=== PATIENT | female | born 1965 | race Caucasian/White ===

== ENCOUNTER 2020-05-03 05:54 | Observation (INO) | payer BC, OTHER ==
[2020-04-29 14:00] LABS: BASOPHILS # (AUTO) 0.1 (0.0-0.1); BASOPHILS % 0.9 % (0.0-1.0); EOSINOPHILS # (AUTO) 0.1 (0.0-0.4); EOSINOPHILS % 1.1 % (0.0-6.0); HEMATOCRIT 39.7 % (34.2-44.1); HEMOGLOBIN 12.3 g/dL (12.0-16.0); LYMPHOCYTES % 24.4 % (18.0-39.1); MEAN CORPUSCULAR HEMOGLOBIN 27.3 pg (28-32); MEAN CORPUSCULAR VOLUME 88.2 fL (81-99); MONOCYTES # (AUTO) 0.6 (0.2-0.8); MONOCYTES % 7.2 % (4.4-11.3); NEUTROPHILS # (AUTO) 5.3 (2.1-6.9); NEUTROPHILS % 66.2 % (38.7-80.0); PLATELET COUNT 401 x10e3/uL (140-360); RED CELL DISTRIBUTION WIDTH 16.2 % (11.7-14.4)
--- NOTE | 2020-04-29 14:29 | Diagnostic Imaging Report ---
EXAMINATION: CHEST 2 VIEWS INDICATION: Preop for left knee surgery ^[id number] ^[id number] ^PRE-OP COMPARISON: None FINDINGS: TUBES and LINES: None. LUNGS: Lungs are well inflated. Lungs are clear. There is no evidence of pneumonia or pulmonary edema. PLEURA: No pleural effusion or pneumothorax. HEART AND MEDIASTINUM: The cardiomediastinal silhouette is unremarkable. BONES AND SOFT TISSUES: No acute osseous lesion. Soft tissues are unremarkable. UPPER ABDOMEN: No free air under the diaphragm. Partially imaged laparoscopic gastric banding device. IMPRESSION: No acute thoracic abnormality. Signed by: Dr. Barney Lazar M.D. on 04/29/2020 2:26 PM
[~2020-05-03] VITALS: Ht 175.3 cm; Wt 117.9 kg
[~2020-05-03 05:54] MED LIST: DALIRESP500 MCG; LEVOXYL200 MCG PO; METOPROLOL; TRILOGY
[2020-05-03] MEDS ORDERED: VANCOMYCIN HCL 500 MG ONE (06:38)
[2020-05-03] MEDS ORDERED: TRANEXAMIC ACID 1,000 MG/10 ML ML ONE (06:38)
[2020-05-03] MEDS ORDERED: CELECOXIB 200 MG CAP ONE (07:12)
[2020-05-03] MEDS ORDERED: DEXAMETHASONE SOD PHOS 10 MG/1 ML VIAL ONE (07:12)
[2020-05-03] MEDS ORDERED: GABAPENTIN 300 MG CAP ONE (07:13)
[2020-05-03] MEDS ORDERED: CEFAZOLIN SOD 1 GM/NS 50ML 100 ML IV ONE (07:13)
[2020-05-03] MEDS ORDERED: METOPROLOL TARTRATE INJ 1 MG/ML VIAL ONE (07:56)
[2020-05-03] MEDS ORDERED: ROPIVACAINE 246.25 MG, EPINEPHRINE HCL 1:1000 1ML 0.5 MG, CLONIDINE HCL 0.08 MG, KETORO... INJ ONE ×5 (08:00)
[2020-05-03] MEDS ORDERED: DOCUSATE SODIUM 100 MG CAP PO PRN (09:45)
[2020-05-03] MEDS ORDERED: ACETAMINOPHEN 650 MG SUPP PR PRN (09:45)
[2020-05-03] MEDS ORDERED: ONDANSETRON HCL INJ 2MG/ML 2ML 2 MG/ML VIAL IV PRN (09:45)
[2020-05-03] MEDS ORDERED: DIPHENHYDRAMINE HCL INJ 50 MG/ML VIAL IV PRN (09:45)
[2020-05-03] MEDS ORDERED: HYDROCODONE/APAP 5MG-325MG TAB PO PRN (09:45)
[2020-05-03] MEDS ORDERED: MEPERIDINE HCL INJ 25 MG/ML VIAL ONE (10:08)
[2020-05-03] MEDS ORDERED: FENTANYL CITRATE/PF 100MCG/2 ML INJ ONE ×2 (10:10→13:37)
--- OUTSIDE RECORDS SUMMARY | 2020-05-03 10:36 | XMS REPORT | Continuity of Care Document ---
Author Author [facility] t Organization [facility] Address [address] [place] [address] Phone Unavailable Care Team Providers Care Community Relations Specialist Name Role Phone Femi BANKS, Colin Justice PCP [phone] PERRY SHUKLA Attphys Unavailable Joselo RN, Rodger Attphys Unavailable Femi BANKS, Colin Justice Attphys [phone] Payers Payer Name Policy Type Policy Number Effective Date Expiration Date S genesis BLUE CROSS/BLUE SHIELDBCBS ADV HMO EXCHA [id number] [facility] [id number], [place] [address] xxxxxxxxxxxx [facility] BCBS EXCHANGEBLUE ADVANTAGE HMO EXCHxxxxxxxxxxxx2018-Pre sentExchange xxxxxxxxxxxx 2018 00:00:00 Edilson Carney Problems Condition Name Condition Details Condition Category Status Onset Date Resolution Date Last Treatment Date Treating Clinician Comments Source COPD (chronic obstructive pulmonary disease) COPD (chr onic obstructive pulmonary disease) Disease Active 2019-03-10 00:00:00 Tadeo Carney Allergies, Adverse Reactions, Alerts Allergy Name Allergy Type Status Severity Reaction(s) Onset Date Inacti ve Date Treating Clinician Comments Source No Known Allergies DA Active U 2018-12-24 00:00:00 [facility] No Known Drug Allergies DA Active U 2014-11-11 00:00:00 [facility] Social History Social Habit Start Date Stop Date Quantity Comments Source Sex Assigned At [facility] History SDOH Alcohol Frequency 2019-03-26 00:00:00 2019-03-26 00:00:0 0 2 [facility] History SDOH Alcohol Std Drinks 2019-03-26 00:00:00 2019-03-26 00:00: 00 1 [facility] History SDOH Alcohol Binge 2019-03-26 00:00:00 2019-03-26 00:00:00 1 [facility] Smoking Status Start Date Stop Date Source Former smoker 2019-03-26 00:00:00 2019-03-26 00:00:00 [facility] Medications Ordered Medication Name Filled Medication Name Start Date Stop Da te Current Medication? Ordering Clinician Indication Dosage Frequency Signature (SIG) Comments Components Source naproxen (NAPROSYN) 500 MG tablet 2019-03-26 10:14:30 Yes 500mg Take 500 mg by mouth 2 (two) times daily with breakfast and dinner. [facility] metoprolol (TOPROL-XL) 50 MG 24 hr tablet 2019-03-26 10:14:30 Yes 50mg Q.5D Take 50 mg by mouth 2 (two) times daily. [facility] roflumilast (DALIRESP) 500 mcg Tab tablet 2019-03-26 10:14:30 Yes 500ug QD Take 500 mcg by mouth daily. [facility] fluticasone furoate-vilanterol 100-25 mcg/dose DsDv 03-26 10:14:30 Yes 1{puff} QD Inhale 1 puff by mouth via inhaler daily . [facility] levothyroxine (SYNTHROID, LEVOTHROID) 175 MCG tablet 2 10:14:29 Yes 175ug Take 175 mcg by mouth Every morning on a n empty stomach. [facility] diclofenac submicronized (ZORVOLEX) 35 mg Cap 2019-03-26 10:14:2 9 Yes 35mg QD Take 35 mg by mouth daily. [facility] mirabegron (MYRBETRIQ) 50 mg Tb24 ER tablet 2019-03-26 10:14:29 Yes 50mg QD Take 50 mg by mouth daily. [facility] furosemide (LASIX) 20 MG tablet 2019-03-26 10:14:29 Yes 20mg QD Take 20 mg by mouth daily. [facility] metoprolol succinate XL (TOPROL-XL) 50 mg 24 hr tablet 2019-03-10 08:22:17 Yes 50mg QD Take 50 mg by mouth daily. Edilson Carney aspirin (ECOTRIN) 81 MG enteric coated tablet 2019-03-10 08:22:1 7 Yes 81mg QD Take 81 mg by mouth daily. Selvin Carney naproxen (NAPROSYN) 250 MG tablet 2019-03-10 08:22:17 Yes 250mg Q.5D Take 250 mg by mouth 2 (two) times a day with meals. Edilson Carney levothyroxine (SYNTHROID, LEVOXYL) 75 mcg tablet 2019-03-10 08:22:17 Yes 75ug QD Take 75 mcg by mouth daily. Edilson Carney dirsuvubhng-frjyjkmms-psnxxpeg (TRELEGY ELLIPTA) 100-62.5-25 mcg blister with device 2019-03-10 08:22:17 Yes QD Inhale anna y. Edilson Carney roflumilast (DALIRESP) 500 mcg tablet 2019-03-10 08:22:17 Y es 500ug QD Take 500 mcg by mouth daily. Edilson emdina fluticasone furoate-vilanterol (BREO ELL IPTA) 100-25 mcg/dose blister with device powder for inhalation 2019-03-10 08:22:17 Yes QD Inhale 1 inhalations daily. Edilson Carney Procedures This patient has no known procedures. Plan of Care Planned Activity Planned Date Details Comments Source Future Scheduled Test 2020-05-20 00:00:00 INFLUENZA VACCINE [code = INFLUENZA VACCINE] Edilson Carney Future Scheduled Test 2020-04-20 00:00:00 INFLUENZA VACCINE (#1) [code = INFLUENZA VACCINE (#1)] [facility] 2016-09-15 00:00:00 BREAST CANCER SCRE ENING [code = BREAST CANCER SCREENING] [facility] Future Scheduled Test 2014 00:00:00 COLONOSCOPY SCREEN ING [code = COLONOSCOPY SCREENING] [facility] Scheduled Test 2014 00:00:00 SHINGLES VACCINES (#1) [code = SHINGLES VACCINES (#1)] [facility] Future Scheduled Test 2009 00:00:00 Lipid panel (proce dure) [code = 63431977] [facility] Future Scheduled Test 1985 00:00:00 Screening for subha gnant neoplasm of cervix (procedure) [code = 115112825] [facility] t Future Scheduled Test 1985 00:00:00 Screening for subha gnant neoplasm of cervix (procedure) [code = 434888224] [facility] Future Scheduled Test 1970 00:00:00 PNEUMOCOCCAL VACCI NE 2-64 YEARS AT RISK (1 of 1 - PPSV23) [code = PNEUMOCOCCAL VACCINE 2-64 YEARS AT RISK (1 of 1 - PPSV23)] [facility] Future Scheduled Test 1964 00:00:00 Screening for subha gnant neoplasm of breast (procedure) [code = 670896320] [facility] Future Scheduled Test 1964 00:00:00 Screening for subha gnant neoplasm of colon (procedure) [code = 334555206] [facility] Results Test Description Test Time Test Comments Results Result Comments Source CHEST 2 VIEWS 2020-04-29 14:20:00 [place] [address] Patient Name: AMANDA PICKARD MR #: [id number] : 1965 Age/Sex: 54/F Req #: [id number] Adm Physician: Ordered by: PERRY SHUKLA MD Report #: [id number] Location: OR Room/Bed: Procedure: [id number] DX/CHEST 2 VIEWS Exam Date: 04/29/20 Exam Time: 140 REPORT STATUS: Signed EXAMINATION: CHEST 2 VIEWS INDICATION: Preop for left knee surgery [id number] PRE-OP COMPARISON: None FINDINGS: TUBES and LINES: None. LUNGS: Lungs are well inflated. Lungs are clear. There is no evidence of pneumonia or pulmonary edema. PLEURA: No pleural effusion or pneumothorax. HEART AND MEDIASTINUM: The cardiomediastinal silhouette is unremarkable. BONES AND SOFT TISSUES: No acute osseous lesion. Soft tissues are unremarkable. UPPER ABDOMEN: No free air under the diaphragm. Partially imaged laparoscopic gastric banding device. IMPRESSION: No acute thoracic abnormality. Signed by: Dr. Claire Lazar M.D. on 04/29/2020 2:26 PM Dictated By: CLAIRE LAZAR MD, MD 25 Transcribed By: SERJIO on 04/29/201425 COPY TO: PERRY SHUKLA MD RAD, CHEST, 2 VIEWS 2019-03-26 12:00:00 [facility]:Amanda MichaelKalpesh# [id number] # [id number] Exam:->COPD FINAL REPORT RAD, CHEST, 2 VIEWS CLINICAL INDICATION: COPD COMPARISON: None TECHNIQUE: Frontal and lateral views of the chest FINDINGS: Lungs are hyperinflated. No focal consolidation. No pleural effusion or pneumothorax. Cardiomediastinal silhouette, biju, and pulmonary vasculature are normal. Degenerative changes of the thoracic spine with a mid thoracic compression deformity. IMPRESSION:1.Hyperinflated lungs. No acute cardiopulmonary abnormality. 2.Age-indeterminate mid thoracic compression fracture. Signed: Tom Inman Verified Date/Time: 03/26/2019 12:00:42 Reading Location: [facility] Radiology Reading Room NUCLEAR ANTIBODIES TITER 2019-01-16 10:17:00 Test Item MICHELLE SCREEN (test code = ANASCR) AB DNA DOUBLE [id number] 10:17:00* Test Item Value Reference Range Interpretation Comments AB DNA DOUBLE STRAND (test code = DNADSAB) 1 IU/mL 0-9 Negative <5 Equivocal 5 - 9 Positive >9 ANTINUCLEAR ANTIBODIES [id number] 10:17:00* Test Item Value Reference Range Interpretation Comments MICHELLE SCREEN (test code = ANASCR) Negative Negative Performed At: [facility] [id number] [place], [place] [id number] Shailesh Frederick MD Ph:[phone] AB DNA DOUBLE [id number] 10:17:00* Test Item Value Reference Range Interpretation Comments AB DNA DOUBLE STRAND (test code = DNADSAB) 1 IU/mL 0-9 Negative <5 Equivocal 5 - 9 Positive >9 RHEUMATOID FACTOR [id number] 17:54:00* Test Item Value Reference Range Interpretation Comments RHEUMATOID FACTOR SCREEN (test code = RA) NEGATIVE NEGATIVE PROCALCITONIN (PCT)2019-01-15 08:19:00* Test Item Value Reference Range Interpretation Comments PROCALCITONIN (PCT) (test code = PROCAL) 0.05 ng/ml Concentration Interpretation (ng/mL) <0.51 Sepsis is not likely. Local bacterial infection is possible. (LOW RISK for progression to Sepsis) 0.51 - 2.00 Sepsis is possible, but other conditions are known to elevate PCT as well. (MODERATE RISK for progression to Sepsis) > 2.00 Sepsis is likely, unless other causes are known. (HIGH RISK for progression to Severe Sepsis or Septic Shock) 10.00 High likelihood of Severe Sepsis or Septic or higher Shock. *Increased PCT levels may not always be related to systemic bacterial infection.*Low PCT levels do not automatically exclude the presence of bacterial infection.*All results should be interpreted taking into account the patients history. BASIC METABOLIC [id number] 08:05:00* Test Item Value Reference Range Interpretation Comments SODIUM (test code = NA) 142 mmol/L 136-145 N POTASSIUM (test code = K) 3.7 mmol/L 3.5-5.1 N CHLORIDE (test code = CL) 108.0 mmol/L 98-107 H CARBON DIOXIDE (test code = CO2) 30.0 mmol/L 21-32 N ANION GAP (test code = GAP) 7.7 10-20 L GLUCOSE (test code = GLU) 81 mg/dL 74-106 N BLOOD UREA NITROGEN (test code = BUN) 28 mg/dL 7-18 H GLOMERULAR FILTRATION RATE (test code = GFR) > 60 mL/min >=60 Estimated GFR by using Modified MDRD formula.Chronic kidney disease is defined as either kidney damageor GFR <60 mL/min/1.73 m2 for >3 months. CREATININE (test code = CREAT) 0.80 mg/dL 0.55-1.02 N Note change in reference range due to change in reagent. BUN/CREATININE RATIO (test code = BUN/CREA) 35.0 10-20 H CALCIUM (test code = CA) 8.7 mg/dL 8.5-10.1 N [id number] 08:05:00* Test Item Value Reference Range Interpretation Comments MAGNESIUM (test code = MAG) 2.2 mg/dL 1.8-2.4 N C REACTIVE [id number] 08:04:00* Test Item Value Reference Range Interpretation Comments C REACTIVE PROTEIN (test code = CRP) 6.86 mg/dL 0-0.3 H BASIC METABOLIC [id number] 08:00:00* Test Item Value Reference Range Interpretation Comments SODIUM (test code = NA) 142 mmol/L 136-145 N POTASSIUM (test code = K) 3.7 mmol/L 3.5-5.1 N CHLORIDE (test code = CL) 108.0 mmol/L 98-107 H CARBON DIOXIDE (test code = CO2) mmol/L 21-32 ANION GAP (test code = GAP) 10-20 GLUCOSE (test code = GLU) mg/dL 74-106 BLOOD UREA NITROGEN (test code = BUN) mg/dL 7-18 GLOMERULAR FILTRATION RATE (test code = GFR) mL/min >=60 CREATININE (test code = CREAT) mg/dL 0.55-1.02 BUN/CREATININE RATIO (test code = BUN/CREA) 10-20 CALCIUM (test code = CA) mg/dL 8.5-10.1 [id number] 08:00:00* Test Item Value Reference Range Interpretation Comments MAGNESIUM (test code = MAG) mg/dL 1.8-2.4 PROTHROMBIN [id number] 08:00:00* Test Item Value Reference Range Interpretation Comments PROTHROMBIN TIME PATIENT (test code = PTP) 12.3 seconds 9.0-14.0 N INTERNATIONAL NORMAL RATIO (test code = INR) 1.0 0.8-1.2 N The therapeutic range for oral anticoagulant therapy formost indications is an international normalized ratio (INR)of between 2.0 and 3.0. The recommended therapeutic INRrange for various clinical situations is listed below: Clinical Situation INR range Pulmonary e mbolism treatment (2.0-3.0)Venous thrombosis treatmentVenous thrombosis prophylaxis (high risk surgery)Prevention of systemic embolism from: Acute myocardial infarction Valvular heart disease Atrial fibrillation Mechanical prosthetic heart valves (2.5-3.5) IS PATIENT ON ANTICOAGULANTS? NTHROMBOPLASTIN TIME [id number] 08:00:00* Test Item Value Reference Range Interpretation Comments THROMBOPLASTIN TIME PARTIAL (test code = PTT) 25.5 seconds 25.0-36. 5 N IS PATIENT ON ANTICOAGULANTS? NCBC W/AUTO [id number] 07:45:00* Test Item Value Reference Range Interpretation Comments WHITE BLOOD CELL (test code = WBC) 10.9 K/mm3 4.5-12.5 N RED BLOOD CELL (test code = RBC) 3.31 mill/mm3 3.7-5.2 L HEMOGLOBIN (test code = HGB) 9.4 gram/dL 11.5-15.5 L HEMATOCRIT (test code = HCT) 30.4 % 36.0-46.0 L MEAN CELL VOLUME (test code = MCV) 91.8 fL 80-98 N MEAN CELL HGB (test code = MCH) 28.4 picogram 27.0-33.0 N MEAN CELL HGB CONCETRATION (test code = MCHC) 30.9 gram/dL 33.0-36. 0 L RED CELL DISTRIBUTION WIDTH (test code = RDW) 15.5 % 11.6-16. 2 N RED CELL DISTRIBUTION WIDTH SD (test code = RDW-SD) 52.0 fL 37 .0-51.0 H PLATELET COUNT (test code = PLT) 508 K/mm3 150-450 H MEAN PLATELET VOLUME (test code = MPV) 9.9 fL 6.7-11.0 N NEUTROPHIL % (test code = NT%) 76.6 % 39.0-69.0 H IMMATURE GRANULOCYTE % (test code = IG%) 0.7 % 0.0-5.0 N LYMPHOCYTE % (test code = LY%) 18.5 % 25.0-55.0 L MONOCYTE % (test code = MO%) 2.9 % 0.0-10.0 N EOSINOPHIL % (test code = EO%) 1.1 % 0.0-5.0 N BASOPHIL % (test code = BA%) 0.2 % 0.0-1.0 N NUCLEATED RBC % (test code = NRBC%) 0.0 % 0-0 N NEUTROPHIL # (test code = NT#) 8.37 K/mm3 1.8-7.7 H IMMATURE GRANULOCYTE # (test code = IG#) 0.08 x10 3/uL 0-0.03 H LYMPHOCYTE # (test code = LY#) 2.02 K/mm3 1.0-5.0 N MONOCYTE # (test code = MO#) 0.32 K/mm3 0-0.8 N EOSINOPHIL # (test code = EO#) 0.12 K/mm3 0.0-0.5 N BASOPHIL # (test code = BA#) 0.02 K/mm3 0.0-0.2 N NUCLEATED RBC # (test code = NRBC#) 0.00 K/mm3 0.0-0.1 N COMPREHENSIVE METABOLIC [id number] 07:31:00* Test Item Value Reference Range Interpretation Comments SODIUM (test code = NA) 140 mmol/L 136-145 N POTASSIUM (test code = K) 4.3 mmol/L 3.5-5.1 N CHLORIDE (test code = CL) 107.0 mmol/L 98-107 N CARBON DIOXIDE (test code = CO2) 25.0 mmol/L 21-32 N ANION GAP (test code = GAP) 12.3 10-20 N GLUCOSE (test code = GLU) 141 mg/dL 74-106 H BLOOD UREA NITROGEN (test code = BUN) 22 mg/dL 7-18 H GLOMERULAR FILTRATION RATE (test code = GFR) > 60 mL/min >=60 Estimated GFR by using Modified MDRD formula.Chronic kidney disease is defined as either kidney damageor GFR <60 mL/min/1.73 m2 for >3 months. CREATININE (test code = CREAT) 0.70 mg/dL 0.55-1.02 N Note change in reference range due to change in reagent. BUN/CREATININE RATIO (test code = BUN/CREA) 31.4 10-20 H TOTAL PROTEIN (test code = PROT) 6.5 gram/dL 6.4-8.2 N ALBUMIN (test code = ALB) 2.6 g/dL 3.4-5.0 L GLOBULIN (test code = GLOB) 3.9 gram/dL 2.7-4.2 N ALBUMIN/GLOBULIN RATIO (test code = A/G) 0.7 0.75-1.50 L CALCIUM (test code = CA) 8.2 mg/dL 8.5-10.1 L BILIRUBIN TOTAL (test code = BILT) 0.30 mg/dL 0.0-1.0 N SGOT/AST (test code = AST) 15 IUnit/L 15-37 N SGPT/ALT (test code = ALT) 25 IUnit/L 12-78 N ALKALINE PHOSPHATASE TOTAL (test code = ALKP) 95 IUnit/L 45-117 N Note change in reference range due to change in reagent. [id number] 07:31:00* Test Item Value Reference Range Interpretation Comments MAGNESIUM (test code = MAG) 2.1 mg/dL 1.8-2.4 N THYROID STIMULATING [id number] 07:31:00* Test Item Value Reference Range Interpretation Comments THYROID STIMULATING HORMONE (test code = TSH) 0.385 uIU/mL 0.36-3.7 4 N TSH REFERENCE RANGES: EUTHYROID: 0.35 - 4.3 mIU/mL HYPO : > 5.5 mIU/mL HYPER : < 0.35 mIU/mL COMPREHENSIVE METABOLIC [id number] 07:01:00* Test Item Value Reference Range Interpretation Comments SODIUM (test code = NA) 140 mmol/L 136-145 N POTASSIUM (test code = K) 4.3 mmol/L 3.5-5.1 N CHLORIDE (test code = CL) 107.0 mmol/L 98-107 N CARBON DIOXIDE (test code = CO2) mmol/L 21-32 ANION GAP (test code = GAP) 10-20 GLUCOSE (test code = GLU) mg/dL 74-106 BLOOD UREA NITROGEN (test code = BUN) mg/dL 7-18 GLOMERULAR FILTRATION RATE (test code = GFR) mL/min >=60 CREATININE (test code = CREAT) mg/dL 0.55-1.02 BUN/CREATININE RATIO (test code = BUN/CREA) 10-20 TOTAL PROTEIN (test code = PROT) gram/dL 6.4-8.2 ALBUMIN (test code = ALB) g/dL 3.4-5.0 GLOBULIN (test code = GLOB) gram/dL 2.7-4.2 ALBUMIN/GLOBULIN RATIO (test code = A/G) 0.75-1.50 CALCIUM (test code = CA) mg/dL 8.5-10.1 BILIRUBIN TOTAL (test code = BILT) mg/dL 0.0-1.0 SGOT/AST (test code = AST) IUnit/L 15-37 SGPT/ALT (test code = ALT) IUnit/L 12-78 ALKALINE PHOSPHATASE TOTAL (test code = ALKP) IUnit/L 45-117 [id number] 07:01:00* Test Item Value Reference Range Interpretation Comments MAGNESIUM (test code = MAG) mg/dL 1.8-2.4 THYROID STIMULATING [id number] 07:01:00* Test Item Value Reference Range Interpretation Comments THYROID STIMULATING HORMONE (test code = TSH) uIU/mL 0.36-3.7 4 CBC W/AUTO [id number] 06:41:00* Test Item Value Reference Range Interpretation Comments WHITE BLOOD CELL (test code = WBC) 13.0 K/mm3 4.5-12.5 H RED BLOOD CELL (test code = RBC) 3.43 mill/mm3 3.7-5.2 L HEMOGLOBIN (test code = HGB) 9.7 gram/dL 11.5-15.5 L HEMATOCRIT (test code = HCT) 30.7 % 36.0-46.0 L MEAN CELL VOLUME (test code = MCV) 89.5 fL 80-98 N MEAN CELL HGB (test code = MCH) 28.3 picogram 27.0-33.0 N MEAN CELL HGB CONCETRATION (test code = MCHC) 31.6 gram/dL 33.0-36. 0 L RED CELL DISTRIBUTION WIDTH (test code = RDW) 15.8 % 11.6-16. 2 N RED CELL DISTRIBUTION WIDTH SD (test code = RDW-SD) 51.1 fL 37 .0-51.0 H PLATELET COUNT (test code = PLT) 476 K/mm3 150-450 H MEAN PLATELET VOLUME (test code = MPV) 10.3 fL 6.7-11.0 N NEUTROPHIL % (test code = NT%) 93.0 % 39.0-69.0 H IMMATURE GRANULOCYTE % (test code = IG%) 0.7 % 0.0-5.0 N LYMPHOCYTE % (test code = LY%) 4.9 % 25.0-55.0 L MONOCYTE % (test code = MO%) 1.3 % 0.0-10.0 N EOSINOPHIL % (test code = EO%) 0.0 % 0.0-5.0 N BASOPHIL % (test code = BA%) 0.1 % 0.0-1.0 N NUCLEATED RBC % (test code = NRBC%) 0.0 % 0-0 N NEUTROPHIL # (test code = NT#) 12.06 K/mm3 1.8-7.7 H IMMATURE GRANULOCYTE # (test code = IG#) 0.09 x10 3/uL 0-0.03 H LYMPHOCYTE # (test code = LY#) 0.64 K/mm3 1.0-5.0 L MONOCYTE # (test code = MO#) 0.17 K/mm3 0-0.8 N EOSINOPHIL # (test code = EO#) 0.00 K/mm3 0.0-0.5 N BASOPHIL # (test code = BA#) 0.01 K/mm3 0.0-0.2 N NUCLEATED RBC # (test code = NRBC#) 0.00 K/mm3 0.0-0.1 N CBC W/AUTO [id number] 07:27:00* Test Item Value Reference Range Interpretation Comments WHITE BLOOD CELL (test code = WBC) 9.5 K/mm3 4.5-12.5 N RED BLOOD CELL (test code = RBC) 3.25 mill/mm3 3.7-5.2 L HEMOGLOBIN (test code = HGB) 9.2 gram/dL 11.5-15.5 L HEMATOCRIT (test code = HCT) 29.7 % 36.0-46.0 L MEAN CELL VOLUME (test code = MCV) 91.4 fL 80-98 N MEAN CELL HGB (test code = MCH) 28.3 picogram 27.0-33.0 N MEAN CELL HGB CONCETRATION (test code = MCHC) 31.0 gram/dL 33.0-36. 0 L RED CELL DISTRIBUTION WIDTH (test code = RDW) 14.4 % 11.6-16. 2 N RED CELL DISTRIBUTION WIDTH SD (test code = RDW-SD) 47.9 fL 37 .0-51.0 N PLATELET COUNT (test code = PLT) 319 K/mm3 150-450 RESULT VERIFIED BY REPEAT ANALYSIS MEAN PLATELET VOLUME (test code = MPV) 10.2 fL 6.7-11.0 N NEUTROPHIL % (test code = NT%) 72.1 % 39.0-69.0 H IMMATURE GRANULOCYTE % (test code = IG%) 0.6 % 0.0-5.0 N LYMPHOCYTE % (test code = LY%) 18.4 % 25.0-55.0 L MONOCYTE % (test code = MO%) 7.6 % 0.0-10.0 N EOSINOPHIL % (test code = EO%) 0.7 % 0.0-5.0 N BASOPHIL % (test code = BA%) 0.6 % 0.0-1.0 N NUCLEATED RBC % (test code = NRBC%) 0.0 % 0-0 N NEUTROPHIL # (test code = NT#) 6.83 K/mm3 1.8-7.7 N IMMATURE GRANULOCYTE # (test code = IG#) 0.06 x10 3/uL 0-0.03 H LYMPHOCYTE # (test code = LY#) 1.75 K/mm3 1.0-5.0 N MONOCYTE # (test code = MO#) 0.72 K/mm3 0-0.8 N EOSINOPHIL # (test code = EO#) 0.07 K/mm3 0.0-0.5 N BASOPHIL # (test code = BA#) 0.06 K/mm3 0.0-0.2 N NUCLEATED RBC # (test code = NRBC#) 0.00 K/mm3 0.0-0.1 N MANUAL DIFF REQUIRED (test code = MDIFF) NO CBC W/AUTO [id number] 11:37:00* Test Item Value Reference Range Interpretation Comments WHITE BLOOD CELL (test code = WBC) 13.7 K/mm3 4.5-12.5 H RED BLOOD CELL (test code = RBC) 3.54 mill/mm3 3.7-5.2 L HEMOGLOBIN (test code = HGB) 10.1 gram/dL 11.5-15.5 L RESULT VERIFIED BY REPEAT ANALYSIS HEMATOCRIT (test code = HCT) 32.6 % 36.0-46.0 L MEAN CELL VOLUME (test code = MCV) 92.1 fL 80-98 N MEAN CELL HGB (test code = MCH) 28.5 picogram 27.0-33.0 N MEAN CELL HGB CONCETRATION (test code = MCHC) 31.0 gram/dL 33.0-36. 0 L RED CELL DISTRIBUTION WIDTH (test code = RDW) 14.2 % 11.6-16. 2 N RED CELL DISTRIBUTION WIDTH SD (test code = RDW-SD) 48.2 fL 37 .0-51.0 N PLATELET COUNT (test code = PLT) 376 K/mm3 150-450 RESULT VERIFIED BY REPEAT ANALYSIS MEAN PLATELET VOLUME (test code = MPV) 9.9 fL 6.7-11.0 N NEUTROPHIL % (test code = NT%) 83.0 % 39.0-69.0 H IMMATURE GRANULOCYTE % (test code = IG%) 0.5 % 0.0-5.0 N LYMPHOCYTE % (test code = LY%) 9.4 % 25.0-55.0 L MONOCYTE % (test code = MO%) 6.9 % 0.0-10.0 N EOSINOPHIL % (test code = EO%) 0.0 % 0.0-5.0 N BASOPHIL % (test code = BA%) 0.2 % 0.0-1.0 N NUCLEATED RBC % (test code = NRBC%) 0.0 % 0-0 N NEUTROPHIL # (test code = NT#) 11.35 K/mm3 1.8-7.7 H IMMATURE GRANULOCYTE # (test code = IG#) 0.07 x10 3/uL 0-0.03 H LYMPHOCYTE # (test code = LY#) 1.29 K/mm3 1.0-5.0 N MONOCYTE # (test code = MO#) 0.94 K/mm3 0-0.8 H EOSINOPHIL # (test code = EO#) 0.00 K/mm3 0.0-0.5 N BASOPHIL # (test code = BA#) 0.03 K/mm3 0.0-0.2 N NUCLEATED RBC # (test code = NRBC#) 0.00 K/mm3 0.0-0.1 N MANUAL DIFF REQUIRED (test code = MDIFF) NO BASIC METABOLIC [id number] 05:21:00* Test Item Value Reference Range Interpretation Comments SODIUM (test code = NA) 139 mmol/L 136-145 N POTASSIUM (test code = K) 4.6 mmol/L 3.5-5.1 N CHLORIDE (test code = CL) 105.0 mmol/L 98-107 N CARBON DIOXIDE (test code = CO2) 21.0 mmol/L 21-32 N ANION GAP (test code = GAP) 17.6 10-20 N GLUCOSE (test code = GLU) 115 mg/dL 74-106 H BLOOD UREA NITROGEN (test code = BUN) 20 mg/dL 7-18 H GLOMERULAR FILTRATION RATE (test code = GFR) > 60 mL/min >=60 Estimated GFR by using Modified MDRD formula.Chronic kidney disease is defined as either kidney damageor GFR <60 mL/min/1.73 m2 for >3 months. CREATININE (test code = CREAT) 0.70 mg/dL 0.55-1.02 N Note change in reference range due to change in reagent. BUN/CREATININE RATIO (test code = BUN/CREA) 28.6 10-20 H CALCIUM (test code = CA) 7.2 mg/dL 8.5-10.1 L THYROID STIMULATING [id number] 05:21:00* Test Item Value Reference Range Interpretation Comments THYROID STIMULATING HORMONE (test code = TSH) 0.594 uIU/mL 0.36-3.7 4 N TSH REFERENCE RANGES: EUTHYROID: 0.35 - 4.3 mIU/mL HYPO : > 5.5 mIU/mL HYPER : < 0.35 mIU/mL BASIC METABOLIC [id number] 05:01:00* Test Item Value Reference Range Interpretation Comments SODIUM (test code = NA) 139 mmol/L 136-145 N POTASSIUM (test code = K) 4.6 mmol/L 3.5-5.1 N CHLORIDE (test code = CL) 105.0 mmol/L 98-107 N CARBON DIOXIDE (test code = CO2) mmol/L 21-32 ANION GAP (test code = GAP) 10-20 GLUCOSE (test code = GLU) mg/dL 74-106 BLOOD UREA NITROGEN (test code = BUN) mg/dL 7-18 GLOMERULAR FILTRATION RATE (test code = GFR) mL/min >=60 CREATININE (test code = CREAT) mg/dL 0.55-1.02 BUN/CREATININE RATIO (test code = BUN/CREA) 10-20 CALCIUM (test code = CA) mg/dL 8.5-10.1 THYROID STIMULATING [id number] 05:01:00* Test Item Value Reference Range Interpretation Comments THYROID STIMULATING HORMONE (test code = TSH) uIU/mL 0.36-3.7 4 CBC W/AUTO [id number] 04:53:00* Test Item Value Reference Range Interpretation Comments WHITE BLOOD CELL (test code = WBC) 7.1 K/mm3 4.5-12.5 N RED BLOOD CELL (test code = RBC) 2.05 mill/mm3 3.7-5.2 L HEMOGLOBIN (test code = HGB) 5.9 gram/dL 11.5-15.5 L HEMATOCRIT (test code = HCT) 19.3 % 36.0-46.0 LL Critical results verified and read back by Nurse?YRELEASED PER [id number] LET HIM KNOW THEPREVIOUS RESULTS MEAN CELL VOLUME (test code = MCV) 94.1 fL 80-98 N MEAN CELL HGB (test code = MCH) 28.8 picogram 27.0-33.0 N MEAN CELL HGB CONCETRATION (test code = MCHC) 30.6 gram/dL 33.0-36. 0 L RED CELL DISTRIBUTION WIDTH (test code = RDW) 14.1 % 11.6-16. 2 N RED CELL DISTRIBUTION WIDTH SD (test code = RDW-SD) 48.2 fL 37 .0-51.0 N PLATELET COUNT (test code = PLT) 197 K/mm3 150-450 N MEAN PLATELET VOLUME (test code = MPV) 9.8 fL 6.7-11.0 N NEUTROPHIL % (test code = NT%) 87.3 % 39.0-69.0 H IMMATURE GRANULOCYTE % (test code = IG%) 0.6 % 0.0-5.0 N LYMPHOCYTE % (test code = LY%) 7.6 % 25.0-55.0 L MONOCYTE % (test code = MO%) 4.4 % 0.0-10.0 N EOSINOPHIL % (test code = EO%) 0.0 % 0.0-5.0 N BASOPHIL % (test code = BA%) 0.1 % 0.0-1.0 N NUCLEATED RBC % (test code = NRBC%) 0.0 % 0-0 N NEUTROPHIL # (test code = NT#) 6.17 K/mm3 1.8-7.7 N IMMATURE GRANULOCYTE # (test code = IG#) 0.04 x10 3/uL 0-0.03 H LYMPHOCYTE # (test code = LY#) 0.54 K/mm3 1.0-5.0 L MONOCYTE # (test code = MO#) 0.31 K/mm3 0-0.8 N EOSINOPHIL # (test code = EO#) 0.00 K/mm3 0.0-0.5 N BASOPHIL # (test code = BA#) 0.01 K/mm3 0.0-0.2 N NUCLEATED RBC # (test code = NRBC#) 0.00 K/mm3 0.0-0.1 N MANUAL DIFF REQUIRED (test code = MDIFF) NO URINALYSIS W/O [id number] 11:10:00* Test Item Value Reference Range Interpretation Comments UA COLOR (test code = COLU) Light-Yellow YELLOW UA APPEARANCE (test code = APPU) CLEAR CLEAR UA GLUCOSE DIPSTICK (test code = DGLUU) NEGATIVE mg/dL NEGATIVE UA BILIRUBIN DIPSTICK (test code = BILU) NEGATIVE mg/dL NEGATIVE UA KETONE DIPSTICK (test code = KETU) NEGATIVE mg/dL NEGATIVE UA SPECIFIC GRAVITY (test code = SGU) 1.018 1.001-1.035 UA BLOOD DIPSTICK (test code = OLGA) Negative mg/dL NEGATIVE UA PH DIPSTICK (test code = RIKA) 6.5 5.0-8.0 UA PROTEIN DIPSTICK (test code = PROU) NEGATIVE mg/dL NEGATIVE UA UROBILINIOGEN DIPSTICK (test code = URO) Normal mg/dL NEGATIVE UA NITRITE DIPSTICK (test code = TERRI) NEGATIVE NEGATIVE UA LEUKOCYTE ESTERASE W REFLEX (test code = LEUUR) NEGATIVE Gui/uL NEGATIVE - XR CHEST 2 [id number] 11:08:00 FAX: Vinh Ceja [phone] [place]: O St: PRE FAX: Chang Mensah MD [phone] Name: AMANDA PICK[facility] : 1965 Age/S: 53/F [address] Unit #: [id number] Loc: [place] [address] Phys: Chang He MD Acct: [id number] Dis Date: Status: PRE IN PHONE #: [phone] Exam Date: 12/24/2018 1516 FAX #: [phone] Reason: PRE OP EXAMS: CPT CODE: [id number] XR CHEST 2 V 01580 HISTORY: Preop. COMPARISON: November 11, 2014. AP and lateral view of the chest: No acute infiltrates, effusion or congestion. Cardiac and the mediastinal silhouette are normal. IMPRESSION: No acute infiltrates, effusion or congestion. at 1108 Reported and signed by: Silvestre Herbert M.D. CC: Vinh Kahn M.D.; Chang He MD Technologist: JANELLE Lopez) Trnscrd Date/Time/By: 12/24/2018 (1108) : By: [email or web address] Orig Print D/T: S: 12/24/2018 (3869) PAGE 1 Signed Report COMPREHENSIVE METABOLIC [id number] 10:51:00* Test Item Value Reference Range Interpretation Comments SODIUM (test code = NA) 136 mmol/L 136-145 N POTASSIUM (test code = K) 4.0 mmol/L 3.5-5.1 N CHLORIDE (test code = CL) 99.0 mmol/L 98-107 N CARBON DIOXIDE (test code = CO2) 32.0 mmol/L 21-32 N ANION GAP (test code = GAP) 9.0 10-20 L GLUCOSE (test code = GLU) 99 mg/dL 74-106 N BLOOD UREA NITROGEN (test code = BUN) 18 mg/dL 7-18 N GLOMERULAR FILTRATION RATE (test code = GFR) > 60 mL/min >=60 Estimated GFR by using Modified MDRD formula.Chronic kidney disease is defined as either kidney damageor GFR <60 mL/min/1.73 m2 for >3 months. CREATININE (test code = CREAT) 0.90 mg/dL 0.55-1.02 N Note change in reference range due to change in reagent. BUN/CREATININE RATIO (test code = BUN/CREA) 20.0 10-20 N TOTAL PROTEIN (test code = PROT) 8.5 gram/dL 6.4-8.2 H ALBUMIN (test code = ALB) 3.9 g/dL 3.4-5.0 N GLOBULIN (test code = GLOB) 4.6 gram/dL 2.7-4.2 H ALBUMIN/GLOBULIN RATIO (test code = A/G) 0.9 0.75-1.50 N CALCIUM (test code = CA) 9.5 mg/dL 8.5-10.1 N BILIRUBIN TOTAL (test code = BILT) 0.40 mg/dL 0.0-1.0 N SGOT/AST (test code = AST) 28 IUnit/L 15-37 N SGPT/ALT (test code = ALT) 46 IUnit/L 12-78 N ALKALINE PHOSPHATASE TOTAL (test code = ALKP) 108 IUnit/L 45-117 N Note change in reference range due to change in reagent. CBC W/AUTO [id number] 10:43:00* Test Item Value Reference Range Interpretation Comments WHITE BLOOD CELL (test code = WBC) 9.5 K/mm3 4.5-12.5 N RED BLOOD CELL (test code = RBC) 4.71 mill/mm3 3.7-5.2 N HEMOGLOBIN (test code = HGB) 13.5 gram/dL 11.5-15.5 N HEMATOCRIT (test code = HCT) 42.3 % 36.0-46.0 N MEAN CELL VOLUME (test code = MCV) 89.8 fL 80-98 N MEAN CELL HGB (test code = MCH) 28.7 picogram 27.0-33.0 N MEAN CELL HGB CONCETRATION (test code = MCHC) 31.9 gram/dL 33.0-36. 0 L RED CELL DISTRIBUTION WIDTH (test code = RDW) 13.5 % 11.6-16. 2 N RED CELL DISTRIBUTION WIDTH SD (test code = RDW-SD) 44.3 fL 37 .0-51.0 N PLATELET COUNT (test code = PLT) 459 K/mm3 150-450 H MEAN PLATELET VOLUME (test code = MPV) 10.1 fL 6.7-11.0 N NEUTROPHIL % (test code = NT%) 70.8 % 39.0-69.0 H IMMATURE GRANULOCYTE % (test code = IG%) 0.3 % 0.0-5.0 N LYMPHOCYTE % (test code = LY%) 20.7 % 25.0-55.0 L MONOCYTE % (test code = MO%) 6.6 % 0.0-10.0 N EOSINOPHIL % (test code = EO%) 0.9 % 0.0-5.0 N BASOPHIL % (test code = BA%) 0.7 % 0.0-1.0 N NUCLEATED RBC % (test code = NRBC%) 0.0 % 0-0 N NEUTROPHIL # (test code = NT#) 6.71 K/mm3 1.8-7.7 N IMMATURE GRANULOCYTE # (test code = IG#) 0.03 x10 3/uL 0-0.03 N LYMPHOCYTE # (test code = LY#) 1.96 K/mm3 1.0-5.0 N MONOCYTE # (test code = MO#) 0.63 K/mm3 0-0.8 N EOSINOPHIL # (test code = EO#) 0.09 K/mm3 0.0-0.5 N BASOPHIL # (test code = BA#) 0.07 K/mm3 0.0-0.2 N NUCLEATED RBC # (test code = NRBC#) 0.00 K/mm3 0.0-0.1 N MANUAL DIFF REQUIRED (test code = MDIFF) NO COMPREHENSIVE METABOLIC [id number] 10:40:00* Test Item Value Reference Range Interpretation Comments SODIUM (test code = NA) 136 mmol/L 136-145 N POTASSIUM (test code = K) 4.0 mmol/L 3.5-5.1 N CHLORIDE (test code = CL) 99.0 mmol/L 98-107 N CARBON DIOXIDE (test code = CO2) mmol/L 21-32 ANION GAP (test code = GAP) 10-20 GLUCOSE (test code = GLU) mg/dL 74-106 BLOOD UREA NITROGEN (test code = BUN) mg/dL 7-18 GLOMERULAR FILTRATION RATE (test code = GFR) mL/min >=60 CREATININE (test code = CREAT) mg/dL 0.55-1.02 BUN/CREATININE RATIO (test code = BUN/CREA) 10-20 TOTAL PROTEIN (test code = PROT) gram/dL 6.4-8.2 ALBUMIN (test code = ALB) g/dL 3.4-5.0 GLOBULIN (test code = GLOB) gram/dL 2.7-4.2 ALBUMIN/GLOBULIN RATIO (test code = A/G) 0.75-1.50 CALCIUM (test code = CA) mg/dL 8.5-10.1 BILIRUBIN TOTAL (test code = BILT) mg/dL 0.0-1.0 SGOT/AST (test code = AST) IUnit/L 15-37 SGPT/ALT (test code = ALT) IUnit/L 12-78 ALKALINE PHOSPHATASE TOTAL (test code = ALKP) IUnit/L 45-117
--- OUTSIDE RECORDS SUMMARY | 2020-05-03 10:36 | XMS REPORT | Clinical Summary ---
Author Author [facility] Address Unknown Phone Unavailable Care Team Providers Care Knitter Helper Name Role Phone Vinh Kahn PCP [phone] Allergies No Known Allergies Medications End Date Status Medication Sig Dispensed Refills Start Date Active levothyroxine (SYNTHROID, Take 175 mcg 0 LEVOTHROID) 175 MCG by mouth tablet Every morning on an empty stomach. Active diclofenac submicronized Take 35 mg by 0 (ZORVOLEX) 35 mg Cap mouth daily. Active mirabegron (MYRBETRIQ) 50 Take 50 mg by 0 mg Tb24 ER tablet mouth daily. Active furosemide (LASIX) 20 MG Take 20 mg by 0 tablet mouth daily. Active naproxen (NAPROSYN) 500 Take 500 mg 0 MG tablet by mouth 2 (two) times daily with breakfast and dinner. Active metoprolol (TOPROL-XL) 50 Take 50 mg by 0 MG 24 hr tablet mouth 2 (two) times daily. Active roflumilast (DALIRESP) Take 500 mcg 0 500 mcg Tab tablet by mouth daily. Active fluticasone Inhale 1 puff 0 furoate-vilanterol 100-25 by mouth via mcg/dose DsDv inhaler daily. Active Problems Not on file Encounters Care Team Description Date Type Specialty Rodger Josue RN Lung Transplant Pre-evaluation 04/06/2020 Telephone Transplant after 05/03/2019 Social History Date Tobacco Use Types Packs/Day Years Used Former Smoker Smokeless Tobacco: Never Used Alcohol Use Drinks/Week oz/Week Comments Yes Alcohol Habits Answer Date Recorded How often do you have a drink containing alcohol? Monthly or less 03/26/2019 How many drinks containing alcohol do you have on 1 or 2 03/26/2019 a typical day when you are drinking? How often do you have six or more drinks on one Never 03/26/2019 occasion? Sex Assigned at Date Recorded Not on file Industry Job Start Date Occupation Not on file Not on file Not on file Travel End Travel History Travel Start No recent travel history available. Last Filed Vital Signs Not on file Plan of Treatment Health Maintenance Due Date Last Done Comments BREAST CANCER SCREENING 1965 COLON CANCER SCREENING 1965 COLONOSCOPY PNEUMOCOCCAL VACCINE 2-64 1970 YEARS AT RISK (1 of 1 - PPSV23) CERVICAL CANCER SCREENING 1985 PAP ONLY (Age 21-65) LIPID PANEL 2009 INFLUENZA VACCINE (#1) 2020 Results Not on fileafter 05/03/2019 Insurance Payer Benefit Subscriber ID Type Phone Address Plan / Group BLUE CROSS/BLUE SHIELD BCBS ADV xxxxxxxxxxxx [phone] [address] [place] [address] EXCHANGE [id number]
--- OUTSIDE RECORDS SUMMARY | 2020-05-03 10:36 | XMS REPORT | Clinical Summary ---
Author Author [facility] Address Unknown Phone Unavailable Care Team Providers Care Accounting Lecturer Name Role Phone Vinh Kahn MD PCP [phone] Allergies No Known Allergies Medications End Date Status Medication Sig Dispensed Refills Start Date Active metoprolol succinate XL Take 50 mg by 0 (TOPROL-XL) 50 mg 24 hr mouth daily. tablet Active aspirin (ECOTRIN) 81 MG Take 81 mg by 0 enteric coated tablet mouth daily. Active naproxen (NAPROSYN) 250 Take 250 mg 0 MG tablet by mouth 2 (two) times a day with meals. Active levothyroxine (SYNTHROID, Take 75 mcg 0 LEVOXYL) 75 mcg tablet by mouth daily. Active qhtzifcmehz-yysvsjcws-css Inhale daily. 0 anter (TRELEGY ELLIPTA) 100-62.5-25 mcg blister with device Active roflumilast (DALIRESP) Take 500 mcg 0 500 mcg tablet by mouth daily. Active fluticasone Inhale 1 0 furoate-vilanterol (BREO inhalations ELLIPTA) 100-25 mcg/dose daily. blister with device powder for inhalation Active Problems Problem Noted Date COPD (chronic obstructive pulmonary disease) 019 Encounters Care Team Description Date Type Specialty Vinh Kahn MD Other screening mammogram (Primary Dx) 06/27/2019 Transcribe Access Orders after 05/03/2019 Social History Date Tobacco Use Types Packs/Day Years Used Former Smoker Sex Assigned at Date Recorded Not on file Industry Job Start Date Occupation Not on file Not on file Not on file Travel End Travel History Travel Start No recent travel history available. Last Filed Vital Signs Not on file Plan of Treatment Health Maintenance Due Date Last Done Comments CERVICAL CANCER SCREENING 1985 COLONOSCOPY SCREENING 2014 SHINGLES VACCINES (#1) 2014 BREAST CANCER SCREENING 09/15/2016 09/15/2014 INFLUENZA VACCINE 05/20/2020 Results Not on fileafter 05/03/2019 Insurance Type Payer Benefit Subscriber ID Effective Phone Address Plan / Dates Group Exchange BCBS EXCHANGE BLUE xxxxxxxxxxxx [id number] ADVANTAGE resent HMO EXCH Advance Directives For more information, please contact: [phone] Patient Casino Worker Explanation Type Date Recorded Advance Directives, Living Will and Medical Power of Gas Inspector
[2020-05-03] MEDS ORDERED: HYDROMORPHONE 1MG/1ML INJ ONE (10:38)
--- NOTE | 2020-05-03 11:05 | Diagnostic Imaging Report ---
Exam: Left knee 2 views History: Knee pain Comparison: None. Findings: See impression Impression: Left total knee arthroplasty with intact components and expected postsurgical change. No complication. Signed by: Dr. Miguel Sims M.D. on 05/03/2020 11:01 AM
[2020-05-03] MEDS ORDERED: HYDROCODONE/APAP 7.5MG-325MG 1 EA TAB ONE (12:20)
--- NOTE | 2020-05-03 12:35 | NUR ---
RECEIVED PATIENT FROM PACU. PATIENT A/O X3, EVEN RESPIRATIONS ON 2LNC. RESPIRATIONS EVEN AND UNLABORED. LEFT KNEE DRESSING C/D/I. FOOT PUMPS IN PLACE. BRIANNA HOSE TO RIGHT LEG. LEFT HAND IV PATENT/INTACT IVF @ 100 CC/HR. PATIENT DUE TO VOID. PATIENT DENIES PAIN AT THIS TIME. CALL LIGHT IN REACH WILL CONTINUE TO MONITOR PATIENT.
[2020-05-03] MEDS ORDERED: ROPIVACAINE 0.5% 5 MG/ML 30 ML SDV ONE (12:51)
[2020-05-03 12:57] VITALS: BP 131/91
[2020-05-03 13:03] VITALS: BP 131/91
--- NOTE | 2020-05-03 13:19 | Operative Report ---
DATE OF PROCEDURE: 05/03/2020 SURGEON: Eugene Ashby MD EDUCATION AND OUTREACH COORDINATOR: Darian Sanches, certified PA. PREOPERATIVE DIAGNOSIS: Osteoarthritis, left knee. SECONDARY DIAGNOSIS: Obesity. POSTOPERATIVE DIAGNOSIS: Osteoarthritis, left knee. PROCEDURE: Left total knee arthroplasty, * added complexity secondary to BMI of nearly 40. INDICATIONS: The patient is a 54-year-old lady who has end-stage arthritis of her left knee. She has failed conservative management and would like to proceed with a left total knee replacement. The risks and benefits have been discussed. She has had a right total knee replacement done by another physician in the past. The added challenges secondary to her body mass index have been explained. All of her questions have been answered. She states she understands and wishes to proceed. PROCEDURE IN DETAIL: The patient was brought to the operating room and placed under general anesthetic. She received a regional block and tranexamic acid in the holding area, added time and personnel were necessary due to her BMI. Much of her weight was distributed to her lower extremities making it appeared to be well above 40. The left lower extremity was prepped and draped in a sterile manner. The extremity was exsanguinated and the proximal tourniquet was inflated to 350 mmHg. A slightly more extensile incision was necessary for the procedure. A medial parapatellar arthrotomy was performed. Care was taken to avoid developing space in the medial and lateral gutters. Abundant adipose tissue was encountered. The soft tissues were released to bring the knee up into flexion with the patella everted. Meniscal remnants, marginal osteophytes and the cruciate ligaments were sacrificed. A Anisa/Biomet Persona knee system was used throughout the case. Initial attention was directed towards the proximal tibia. An extramedullary cutting guide was carefully used to resect the proximal tibia. The cut was referenced off the medial compartment. The tibial base plate was a size F. The central fin punch was impacted and drilled. Attention was directed towards the distal femur. An intramedullary cutting guide was used to resect the distal femur in 5 degrees of valgus and rotation referencing off a combination of landmarks including Whitesides line, the epicondylar axis, and the posterior condyles. We used a size eight femoral component. We ended up shifting this 2 mm anterior. Again, added time and difficulty was encountered due to the altered surgical field. Trial reductions were performed. A 12 mm medial congruent tibial insert provided optimal soft tissue balancing in full extension and 90 degrees of flexion. The patella was resurfaced with a 32 mm patellar button. The thickness was checked before and after and it was right around 23 mm. Patellar tracking was noted to be concentric. The trial implants were then all removed. The knee was thoroughly irrigated with a shower tip pulsatile lavage. A 100 mL premixed pericapsular MABEL injection was placed into the surrounding soft tissue. The components were cemented into place using a single mix of high viscosity Biomet cement preloaded with antibiotics. Care was taken to remove all extravasated cement. The wound was further irrigated with a shower tip pulsatile lavage while the cement cured. The arthrotomy was then closed after sprinkling 500 mg of vancomycin powder into the deep wound. The knee was put through flexion and extension to ensure a secure closure. The skin was carefully closed with subcuticular Vicryl and jeramy. A sterile bandage was applied. The patient was extubated and transported to the recovery room in stable condition. Blood loss was minimal. All needle and sponge counts were correct. Eugene Ashby MD DR/SARAH /[id number]
[2020-05-03] MEDS ORDERED: LIDOCAINE HCL 2% LOCAL INJ 5 ML SDV VIAL INJ ONE (13:35)
[2020-05-03] MEDS ORDERED: SEVOFLURANE INHAL SOLN 250 ML PEN BTL ONE (13:35)
[2020-05-03] MEDS ORDERED: PROPOFOL IV EMULSION 10 MG/ML 20 ML VIAL ONE (13:35)
[2020-05-03] MEDS ORDERED: ONDANSETRON HCL INJ 2MG/ML 2ML 2 MG/ML VIAL ONE (13:35)
[2020-05-03] MEDS ORDERED: MIDAZOLAM HCL 2 MG/2 ML VIAL ONE (13:37)
[2020-05-03] MEDS: SODIUM CHLORIDE 0.9% 1000ML 1,000 ML IV SCH ×2 (14:43→19:45)
[2020-05-03] MEDS: CEFAZOLIN SOD 1 GM/NS 50ML 50 ML IV SCH ×2 (14:43→15:08)
--- NOTE | 2020-05-03 14:49 | Consultation ---
DATE OF CONSULTATION: 05/03/2020 REASON FOR CONSULTATION: Medical management. HISTORY OF PRESENT ILLNESS: This is a 54-year-old white woman, who was initially admitted to [facility] with diagnosis of advanced left knee osteoarthritis that was causing debilitating chronic pain. The patient's left knee osteoarthritis was complicated by the fact that she has obesity with a BMI of 38. Today, the patient underwent successful left total knee arthroplasty performed by Dr. Eugene Ashby, her orthopedic surgeon. The patient states her pain is currently well controlled. The patient said a year ago she underwent successful right total knee replacement performed by Dr. He at [facility]. On April 29, 2020, the patient's hemoglobin was 12.3 g/dL. The patient's white blood cell count was 8000. REVIEW OF SYSTEMS: CONSTITUTIONAL: Weight has been stable. No fever or chills. HEENT: No headaches, no visual changes. CARDIOVASCULAR/RESPIRATORY: The patient has COPD, but her symptoms are well control with Trelegy inhaler. The patient denies any chest pain, shortness of breath or cough. GI: No nausea, vomiting, or constipation. : No UTI symptoms. No Nguyễn catheter was placed. NEUROMUSCULAR: The patient denies any pain in the left knee at this time. ALLERGIES: NO KNOWN DRUG ALLERGIES. MEDICATIONS: 1. Levothyroxine 200 mcg daily. 2. Daliresp 500 mcg once daily. 3. Metoprolol tartrate 25 mg b.i.d. 4. Trelegy inhaler one puff daily. PAST MEDICAL HISTORY: 1. Obesity, BMI 38. 2. Left knee osteoarthritis (advanced). 3. Hypertensive heart disease. 4. COPD. 5. Previous heavy tobacco smoker (quit 2011). 6. Hypothyroidism. PAST SURGICAL HISTORY: 1. Left total knee arthroplasty today. 2. Right total knee arthroplasty in 2019. 3. Laparoscopic banding in 2008. 4. Bilateral foot surgery to repair hammertoes. 5. Total abdominal hysterectomy with bilateral salpingo-oophorectomy. 6. Laparoscopic cholecystectomy. 7. Partial thyroidectomy. 8. Total thyroidectomy. SOCIAL HISTORY: This woman is , lives with . She quit smoking tobacco in 2011. She does not drink alcohol. 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 FAMILY HISTORY: Father of myocardial infarction at age 58. The patient states her mother has advanced osteoarthritis as undergone bilateral total knee replacement. PHYSICAL EXAMINATION: GENERAL: She is awake and alert. She is fully oriented. She is in no distress. VITAL SIGNS: Height 5 feet 9 inches, weight is 260 pounds, BMI 38. Blood pressure is 130/88, pulse is 100, respiratory rate is 22, oxygen saturation 95% on 2 L oxygen. Temperature is 97.5. INTEGUMENT: Skin is warm and dry. No pallor, jaundice, or diaphoresis. HEENT: Anterior sclerae. Moist mucous membranes. NECK: Supple. CARDIOVASCULAR: Distant heart sounds. Tachycardic rate with a regular rhythm. LUNGS: No rales, no rhonchi or wheezes. ABDOMEN: Soft. No bowel sounds. EXTREMITIES: The left knee surgical incision is currently dressed. The patient is currently wearing sequential compression devices in her bilateral lower legs. NEUROLOGIC: Intact. No gross deficits appreciated. DIAGNOSES: 1. Status post left total knee arthroplasty today. 2. Severe left knee osteoarthritis. 3. Chronic obstructive pulmonary disease. 4. Hypertensive heart disease. 5. Obesity. BMI 38. 6. Previous heavy tobacco, smoker quit in 2011. PLAN: 1. Resume home medications particularly metoprolol tartrate 25 mg twice a day. 2. Restart Trelegy inhaler one puff daily. 3. Encourage incentive spirometry usage to prevent atelectasis. 4. Mobilize the patient with therapy. 5. Pain control. I would like to thank, Dr. Ashby, for this generous consult. I spent 45 minutes in the care of this patient. MD LEONORA Parr/SARAH /[id number] POONAM
--- NOTE | 2020-05-03 14:56 | NUR ---
DR SCOTT OFFICE PREARRANGED FOLLOWING DISCHARGE PLAN OF:HOME [address] [id number] HOME HEALTH WITH [facility] CONFIRMED WITH ZORAN COLLAZO [phone] DME 3 IN ONE COMMODE,CPM AND ROLLING WALKER WITH WHEELS. PROVIDED BY [employer] [phone] [facility] SIGNED AND ON CHART COPY LEFT WITH PATIENT GAVE CARD FOR QUESTIONS AND OR CONCERNS.
[2020-05-03] MEDS ORDERED: ACETAMINOPHEN 1000 MG/100 ML IV PRN (15:00)
--- NOTE | 2020-05-03 15:12 | NUR ---
[facility], CANNOT STAFF THE PT, THEY WILL FORWARD, WILL UPDATE WHEN ABLE THEY FORWARDED TO [facility] AT HOME, REACH AND COASTAL.
[2020-05-03 15:48] VITALS: BP 128/88
--- NOTE | 2020-05-03 16:09 | NUR ---
SPOKE WITH CAYLA FROM [facility], THEY ARE TAKING THE PATIENT, GAVE OFFICE NUMBER TO PT TO BE ABLE TO FOLLOW UP UPON DISCHARGE IF ANYTHING ARISES.
[2020-05-03] MEDS: CELECOXIB 100 MG CAP PO SCH (16:10)
[2020-05-03] MEDS: ASPIRIN 325 MG TAB PO SCH (16:10)
[2020-05-03] MEDS: METOPROLOL TARTRATE 25 MG TAB PO SCH (16:19)
--- NOTE | 2020-05-03 16:26 | NUR ---
PATIENT HAS VOIDED SINCE SURGERY.
--- NOTE | 2020-05-03 18:53 | NUR ---
CPM PLACED ON PATIENT AT 50 DEGREES. PATIENT TOLERATING WELL.
--- NOTE | 2020-05-03 19:24 | NUR ---
Received pt in bed awake, a/o x4. No c/o at this time, no s/sx of acute distress noted. Bed in low and locked position, call cook and personal items within reach. Will cont to mon Addendum: 05/03/20 at 1928 by Courtney Lozano RN Bedside report completed, CPM in use
[2020-05-03 19:38] VITALS: BP 125/90
[2020-05-03 21:00] VITALS: BP 125/90
[2020-05-03] MEDS ORDERED: ZOLPIDEM TARTRATE 5 MG TAB PO PRN (21:00)
[2020-05-04] VITALS (7 sets, daily range): BP systolic 123–162; BP diastolic 72–105
[2020-05-04] MEDS: KETOROLAC TROMETHAMINE 30 MG/ML VIAL IV PRN ×2 (03:40→09:20)
[2020-05-04] MEDS: HYDROCODONE/APAP 7.5MG-325MG 1 EA TAB PO PRN ×3 (04:15→18:28)
[2020-05-04] MEDS: SODIUM CHLORIDE 0.9% 1000ML 1,000 ML IV SCH (05:45)
[2020-05-04 06:04] LABS: BASOPHILS % 0.2 % (0.0-1.0); HEMATOCRIT 34.4 % (34.2-44.1); HEMOGLOBIN 10.8 g/dL (12.0-16.0); LYMPHOCYTES # (AUTO) 1.7 (1.0-3.2); LYMPHOCYTES % 12.9 % (18.0-39.1); MEAN CORPUSCULAR HEMOGLOBIN 27.8 pg (28-32); MEAN CORPUSCULAR HGB CONC 31.4 g/dL (31-35); MEAN CORPUSCULAR VOLUME 88.7 fL (81-99); MONOCYTES % 7.4 % (4.4-11.3); NEUTROPHILS # (AUTO) 10.2 (2.1-6.9); PLATELET COUNT 390 x10e3/uL (140-360); RED BLOOD COUNT 3.88 x10e6/uL (3.6-5.1); RED CELL DISTRIBUTION WIDTH 16.3 % (11.7-14.4)
[2020-05-04 06:21] LABS: ANION GAP 13.9 mmol/L (8-16); BLOOD UREA NITROGEN 15 mg/dL (7-26); BUN/CREATININE RATIO 18 (6-25); CALCIUM 7.9 mg/dL (8.4-10.2); CARBON DIOXIDE 27 mmol/L (22-29); CHLORIDE 101 mmol/L (98-107); CREATININE, SERUM 0.82 mg/dL (0.57-1.11); EST GLOMERULAR FILTRATION RATE > 60 ML/MIN (60-); GLUCOSE 107 mg/dL (74-118); POTASSIUM 3.9 mmol/L (3.5-5.1); SODIUM 138 mmol/L (136-145)
[2020-05-04] MEDS: LEVOTHYROXINE SODIUM 100 MCG TAB PO SCH (06:33)
--- NOTE | 2020-05-04 07:00 | NUR ---
RECEIVED PATIENT RESTING IN BED NO S/S OF DISTRESS. BED LOW, WHEELS LOCKED, SIDE RAILS X2. CALL LIGHT IN REACH WILL CONTINUE TO MONITOR PATIENT.
[2020-05-04] MEDS: CEFAZOLIN SOD 1 GM/NS 50ML 50 ML IV SCH ×2 (08:44)
[2020-05-04] MEDS: ASPIRIN 325 MG TAB PO SCH ×2 (08:44→16:17)
[2020-05-04] MEDS: CELECOXIB 100 MG CAP PO SCH ×2 (08:44→16:17)
[2020-05-04] MEDS: METOPROLOL TARTRATE 25 MG TAB PO SCH ×2 (08:45→16:17)
[2020-05-04] MEDS ORDERED: LEVOTHYROXINE SODIUM 200 MCG PO SCH (09:00)
--- NOTE | 2020-05-04 10:56 | Progress Note ---
DATE: 05/04/2020 CHIEF COMPLAINT/HISTORY OF PRESENT ILLNESS: This is a 54-year-old white woman, who underwent left total knee arthroplasty yesterday on Sunday, May 03, 2020. The patient states she is still having a considerable amount of pain in her right knee. Nursing staff stated they gave her a dose of intravenous ketorolac this morning. The patient denies any fever or chills. The patient's white blood cell count today is 12,900 with 79% segmented neutrophils. Hemoglobin is 10.8 g/dL. The patient's basic metabolic profile is completely normal. REVIEW OF SYSTEMS: As per HPI. PHYSICAL EXAMINATION: GENERAL: She is awake, she is alert, and she is fully oriented. She does appear to be in obvious pain. She is very pleasant and cooperative to exam. In fact, she is currently participating in physical therapy. VITAL SIGNS: Height 5 feet 9 inches, weight 260 pounds, BMI is 38. Blood pressure is 136/82, pulse is 98, respiratory rate 18, temperature 97.6, oxygen saturation 100% on room air. INTEGUMENT: Skin is warm and dry. No pallor, jaundice, or diaphoresis. HEENT: Anterior sclerae with moist mucous membranes. NECK: Supple. CARDIOVASCULAR: Tachycardic rate with regular rhythm. LUNGS: No rales, no rhonchi and no wheezes. ABDOMEN: Soft. Normal bowel sounds. EXTREMITIES: Left knee surgical incision is currently dressed. The patient is currently wearing compression stockings in her lower legs. NEUROLOGIC: Intact. No gross deficits appreciated. She is currently ambulating using a rolling walker with physical therapy. She is hopping on her right lower leg at this time. In other words she is not bearing weight on her left foot. DIAGNOSES: 1. Status post left total knee arthroplasty yesterday, May 03, 2020. 2. Severe left knee osteoarthritis. 3. Obesity, BMI 38. 4. Chronic obstructive pulmonary disease. 5. Hypertensive heart disease. 6. Previous heavy tobacco smoker, quit in 2011. PLAN: 1. Mobilize physical therapy. 2. Trelegy inhaler one puff daily for chronic obstructive pulmonary disease. 3. Encourage continued incentive spirometer usage to prevent atelectasis. 4. Pain control. 5. Discharge planning for either today or tomorrow as per Orthopedics recommendations. I spent 30 minutes in the care of the patient. MD LEONORA Parr/SARAH /[id number] POONAM
[2020-05-04] MEDS ORDERED: ONDANSETRON HCL 4 MG ORAL DISINTEGRATING TAB PO PRN (13:30)
[2020-05-04] MEDS: HYDROMORPHONE 1MG/1ML INJ IV PRN ×2 (15:25→20:10)
--- NOTE | 2020-05-04 18:22 | NUR ---
PATIENT REFUSING CPM AT THIS TIME DUE TO PAIN.
[2020-05-05] VITALS: BP 138/93
[2020-05-05] MEDS: HYDROMORPHONE 1MG/1ML INJ IV PRN
[2020-05-05 01:35] VITALS: BP 138/93
[2020-05-05 05:13] LABS: BASOPHILS % 0.5 % (0.0-1.0); EOSINOPHILS # (AUTO) 0.1 (0.0-0.4); EOSINOPHILS % 1.7 % (0.0-6.0); HEMOGLOBIN 10.6 g/dL (12.0-16.0); LYMPHOCYTES # (AUTO) 1.8 (1.0-3.2); LYMPHOCYTES % 23.6 % (18.0-39.1); MEAN CORPUSCULAR HEMOGLOBIN 28.6 pg (28-32); MEAN CORPUSCULAR HGB CONC 32.1 g/dL (31-35); MEAN CORPUSCULAR VOLUME 88.9 fL (81-99); MONOCYTES # (AUTO) 0.7 (0.2-0.8); MONOCYTES % 8.6 % (4.4-11.3); NEUTROPHILS % 65.1 % (38.7-80.0); PLATELET COUNT 341 x10e3/uL (140-360); RED BLOOD COUNT 3.71 x10e6/uL (3.6-5.1)
[2020-05-05 05:28] LABS: ANION GAP 11.8 mmol/L (8-16); BLOOD UREA NITROGEN 16 mg/dL (7-26); BUN/CREATININE RATIO 22 (6-25); CALCIUM 7.8 mg/dL (8.4-10.2); CARBON DIOXIDE 27 mmol/L (22-29); CHLORIDE 102 mmol/L (98-107); CREATININE, SERUM 0.73 mg/dL (0.57-1.11); EST GLOMERULAR FILTRATION RATE > 60 ML/MIN (60-); GLUCOSE 83 mg/dL (74-118); POTASSIUM 3.8 mmol/L (3.5-5.1); SODIUM 137 mmol/L (136-145)
[2020-05-05] MEDS: LEVOTHYROXINE SODIUM 100 MCG TAB PO SCH (06:43)
--- NOTE | 2020-05-05 07:00 | NUR ---
bedside shift report received pt in stable condition denies pain at this time, updated on poc vocied understanding, call light in reach will continue to monitor
[2020-05-05 07:29] VITALS: BP 153/100
[2020-05-05] MEDS: CELECOXIB 100 MG CAP PO SCH (08:16)
[2020-05-05] MEDS: ASPIRIN 325 MG TAB PO SCH (08:16)
[2020-05-05] MEDS: METOPROLOL TARTRATE 25 MG TAB PO SCH (08:17)
[2020-05-05] MEDS: HYDROCODONE/APAP 7.5MG-325MG 1 EA TAB PO PRN (08:18)
[2020-05-05 08:26] VITALS: BP 153/100
[2020-05-05] MEDS: KETOROLAC TROMETHAMINE 30 MG/ML VIAL IV PRN (08:26)
--- NOTE | 2020-05-05 10:31 | Progress Note ---
DATE: 05/05/2020 CHIEF COMPLAINT/HISTORY OF PRESENT ILLNESS: This is a 54-year-old white woman, whose primary treating diagnosis was advanced left knee osteoarthritis. During this hospitalization, the patient underwent successful left total knee arthroplasty that was performed by orthopedic surgeon, namely Dr. Eugene Ashby. The patient tolerated the surgery quite well. The patient states her pain is better controlled today. The patient is mobilizing adequately with physical therapy. The patient denies any chest pain, short of breath, or cough. The patient denies any fever or chills. Complete blood count today revealed a hemoglobin of 10.6 g/dL. White blood cell count 7700 with 65% segmented neutrophils. Basic metabolic profile is unremarkable. REVIEW OF SYSTEMS: As per HPI. PHYSICAL EXAMINATION: GENERAL: She is awake. She is alert. She is fully oriented. She is in no distress. VITAL SIGNS: Height 5 feet 9 inches, weight 260 pounds, BMI 38. Blood pressure is 150/100, heart rate 100, respiratory rate 22, oxygen saturation 98% on room air, temperature 98.6. INTEGUMENT: Skin is warm and dry. No pallor, jaundice, or diaphoresis. HEENT: Anicteric sclerae. Moist mucous membranes. NECK: Supple. CARDIOVASCULAR: Distant heart sounds. Tachycardic rate with regular rhythm. The patient has an S4 gallop. LUNGS: No rales. No rhonchi or wheezes. ABDOMEN: Soft. Normal bowel sounds. Nontender. EXTREMITIES: Left knee surgical incision is currently dressed. She is currently wearing compression stockings in her bilateral lower legs. NEUROLOGIC: Intact. No gross deficits appreciated. The patient is about to ambulate with physical therapy. DIAGNOSES: 1. Status post left total knee arthroplasty on May 03, 2020. 2. Severe left knee osteoarthritis. 3. Obesity, BMI 38. 4. Chronic obstructive pulmonary disease. 5. Hypertensive heart disease. 6. Previous heavy tobacco smoker, quit in 2011. PLAN: 1. Mobilize the patient with physical therapy. 2. Trilogy inhaler 1 puff daily for the patient's COPD. 3. Encourage continued incentive spirometer usage to prevent atelectasis. 4. Pain control. 5. Blood pressure control. 6. I reassured the patient that her blood pressure will normalize once her pain level stabilizes. 7. Discharge planning for today as per Orthopedics recommendations. I spent 30 minutes in the care of the patient. MD LEONORA Parr/SARAH /[id number]
[2020-05-05 11:27] VITALS: BP 140/90
== END 2020-05-05 14:05 | disposition home or self-care (01) ==
LOC: OR 05:54 → PACU V 09:47 → MED/SURG 12:40
PROVIDERS: ADMIT Specialist; ATTEND Specialist
DX: M17.12 Unilateral primary osteoarthritis, left knee (principal); Z90.49 Acquired absence of other specified parts of digestive tract; Z98.890 Other specified postprocedural states; E66.01 Morbid (severe) obesity due to excess calories; J44.9 Chronic obstructive pulmonary disease, unspecified; Z68.38 Body mass index [BMI] 38.0-38.9, adult; Z96.651 Presence of right artificial knee joint; I11.9 Hypertensive heart disease without heart failure; Z87.891 Personal history of nicotine dependence; E03.9 Hypothyroidism, unspecified; Z11.59 Encounter for screening for other viral diseases
CPT/HCPCS: 27447; 36415 ×3; 71046; 73560; 80048 ×2; 85025 ×3; 86850; 86900; 86920; 93005; 97110; 97116 ×3; 97139; 97162; 97530 ×2; C1713; G0378 ×3; J0171; J0690 ×2; J1100; J1170 ×3; J1885 ×3; J2001; J2175; J2405; J2704; J2795; J3010; J3370; J7030; U0002; J2250; Q0162

== ENCOUNTER 2020-10-26 09:47 | Inpatient (IN) | payer BC ==
[2020-10-21 10:29] LABS: BASOPHILS # (AUTO) 0.1 (0.0-0.1); BASOPHILS % 1.1 % (0.0-1.0); EOSINOPHILS # (AUTO) 0.2 (0.0-0.4); HEMATOCRIT 39.9 % (34.2-44.1); HEMOGLOBIN 12.8 g/dL (12.0-16.0); LYMPHOCYTES # (AUTO) 1.7 (1.0-3.2); MEAN CORPUSCULAR HEMOGLOBIN 28.1 pg (28-32); MEAN CORPUSCULAR HGB CONC 32.1 g/dL (31-35); MEAN CORPUSCULAR VOLUME 87.5 fL (81-99); MONOCYTES # (AUTO) 0.5 (0.2-0.8); NEUTROPHILS # (AUTO) 5.2 (2.1-6.9); NEUTROPHILS % 68.6 % (38.7-80.0); PLATELET COUNT 478 x10e3/uL (140-360); RED BLOOD COUNT 4.56 x10e6/uL (3.6-5.1); RED CELL DISTRIBUTION WIDTH 14.6 % (11.7-14.4)
[~2020-10-26] VITALS: Ht 175.3 cm; Wt 114.8 kg
[~2020-10-26 09:47] MED LIST changes: -DALIRESP500 MCG; +DALIRESP500 MCG PO; +METOPROLOL TART50 MG PO; +ROPIVACAINE 246.25 MG, EPINEPHRINE HCL 1:1000 1ML 0.5 MG, CLONIDINE HCL 0.08 MG, KETORO... INJ ONE; +SODIUM CHLORIDE 0.9% 500ML 500 ML ONE; +TRANEXAMIC ACID 1,000 MG/10 ML ML ONE; +TRELEGY ELLIPT1 EACH INH; +VANCOMYCIN HCL 500 MG ONE
[2020-10-26] MEDS ORDERED: DEXAMETHASONE SOD PHOS 10 MG/1 ML VIAL ONE (10:05)
[2020-10-26] MEDS ORDERED: CELECOXIB 200 MG CAP ONE (10:05)
[2020-10-26] MEDS ORDERED: GABAPENTIN 300 MG CAP ONE (10:05)
[2020-10-26] MEDS ORDERED: VANCOMYCIN 1GM/NS 250 ML 250 ML ONE (10:06)
[2020-10-26] MEDS ORDERED: LIDOCAINE 2%/ EPINEPHRINE 20ML MDV ONE (11:49)
[2020-10-26] MEDS ORDERED: ROPIVACAINE 0.5% 5 MG/ML 30 ML SDV ONE (11:49)
[2020-10-26] MEDS ORDERED: HYDROCODONE/APAP 5MG-325MG TAB PO PRN (12:30)
[2020-10-26] MEDS ORDERED: ACETAMINOPHEN 650 MG SUPP PR PRN (12:30)
[2020-10-26] MEDS ORDERED: DIPHENHYDRAMINE HCL INJ 50 MG/ML VIAL IV PRN (12:30)
[2020-10-26] MEDS ORDERED: ZOLPIDEM TARTRATE 5 MG TAB PO PRN (12:30)
[2020-10-26] MEDS ORDERED: DOCUSATE SODIUM 100 MG CAP PO PRN (12:30)
[2020-10-26] MEDS ORDERED: ONDANSETRON HCL INJ 2MG/ML 2ML 2 MG/ML VIAL IV PRN (12:30)
[2020-10-26] MEDS ORDERED: MIDAZOLAM HCL 2 MG/2 ML VIAL ONE (12:52)
[2020-10-26] MEDS ORDERED: FENTANYL CITRATE/PF 100MCG/2 ML INJ ONE ×2 (12:52→13:39)
[2020-10-26] MEDS ORDERED: HYDROMORPHONE 1MG/1ML INJ ONE (13:19)
[2020-10-26] MEDS: HYDROCODONE/APAP 7.5MG-325MG 1 EA TAB PO PRN (14:58)
[2020-10-26 14:59] LABS: PROTHROMBIN TIME 13.8 seconds (11.9-14.5)
[2020-10-26] MEDS ORDERED: HYDROCODONE/APAP 7.5MG-325MG 1 EA TAB ONE (15:04)
[2020-10-26 15:05] LABS: BLOOD UREA NITROGEN 20 mg/dL (7-26); BUN/CREATININE RATIO 22 (6-25); EST GLOMERULAR FILTRATION RATE > 60 ML/MIN (60-)
[2020-10-26 15:41] VITALS: BP 137/80
[2020-10-26 16:00] VITALS: BP 137/80
[2020-10-26] MEDS: SODIUM CHLORIDE 0.9% 1000ML 1,000 ML IV SCH (18:48)
[2020-10-26] MEDS: CELECOXIB 200 MG CAP PO SCH (18:48)
[2020-10-26] MEDS: ASPIRIN 325 MG TAB PO SCH (18:48)
[2020-10-26 20:20] VITALS: BP 117/73
[2020-10-26 20:38] VITALS: BP 117/73
[2020-10-26] MEDS: VANCOMYCIN 1GM/NS 250 ML 250 ML IV SCH (22:20)
[2020-10-27] VITALS (7 sets, daily range): BP systolic 118–145; BP diastolic 81–103
[2020-10-27] MEDS: SODIUM CHLORIDE 0.9% 1000ML 1,000 ML IV SCH (02:00)
[2020-10-27] MEDS: HYDROCODONE/APAP 7.5MG-325MG 1 EA TAB PO PRN ×4 (02:29→21:45)
[2020-10-27 05:29] LABS: BASOPHILS % 0.3 % (0.0-1.0); EOSINOPHILS % 0.1 % (0.0-6.0); HEMATOCRIT 36.7 % (34.2-44.1); HEMOGLOBIN 11.6 g/dL (12.0-16.0); LYMPHOCYTES # (AUTO) 1.5 (1.0-3.2); LYMPHOCYTES % 12.6 % (18.0-39.1); MEAN CORPUSCULAR HEMOGLOBIN 27.6 pg (28-32); MEAN CORPUSCULAR HGB CONC 31.6 g/dL (31-35); MEAN CORPUSCULAR VOLUME 87.4 fL (81-99); MONOCYTES # (AUTO) 0.9 (0.2-0.8); MONOCYTES % 7.8 % (4.4-11.3); NEUTROPHILS # (AUTO) 9.2 (2.1-6.9); NEUTROPHILS % 78.8 % (38.7-80.0); PLATELET COUNT 341 x10e3/uL (140-360); RED CELL DISTRIBUTION WIDTH 14.6 % (11.7-14.4)
[2020-10-27 05:58] LABS: ALANINE AMINOTRANSFERASE 19 IU/L (0-55); ALBUMIN/GLOBULIN RATIO 0.8 (0.8-2.0); ALKALINE PHOSPHATASE 100 IU/L (40-150); ANION GAP 12.1 mmol/L (8-16); BLOOD UREA NITROGEN 16 mg/dL (7-26); BUN/CREATININE RATIO 21 (6-25); CALCIUM 8.2 mg/dL (8.4-10.2); CARBON DIOXIDE 25 mmol/L (22-29); CHLORIDE 105 mmol/L (98-107); CREATININE, SERUM 0.76 mg/dL (0.57-1.11); EST GLOMERULAR FILTRATION RATE > 60 ML/MIN (60-); GLUCOSE 104 mg/dL (74-118); POTASSIUM 4.1 mmol/L (3.5-5.1); SODIUM 138 mmol/L (136-145)
[2020-10-27] MEDS: KETOROLAC TROMETHAMINE 30 MG/ML VIAL IV PRN ×2 (06:43→17:27)
[2020-10-27] MEDS: ASPIRIN 325 MG TAB PO SCH ×2 (07:50→17:27)
[2020-10-27] MEDS: CELECOXIB 200 MG CAP PO SCH ×2 (07:50→17:27)
[2020-10-27] MEDS: VANCOMYCIN 1GM/NS 250 ML 250 ML IV SCH (11:41)
[2020-10-27] MEDS: ACETAMINOPHEN 1000 MG/100 ML IV PRN ×2 (11:41→20:11)
[2020-10-27] MEDS ORDERED: ROCURONIUM BROMIDE 10 MG/ML 5ML VIAL IV ONE (12:48)
[2020-10-27] MEDS ORDERED: GLYCOPYRROLATE INJ 0.2 MG/ML VIAL ONE (12:48)
[2020-10-27] MEDS ORDERED: PROPOFOL IV EMULSION 10 MG/ML 20 ML VIAL ONE (12:48)
[2020-10-27] MEDS ORDERED: SEVOFLURANE INHAL SOLN 250 ML PEN BTL ONE (12:48)
[2020-10-27] MEDS ORDERED: ONDANSETRON HCL INJ 2MG/ML 2ML 2 MG/ML VIAL ONE (12:48)
[2020-10-27] MEDS ORDERED: NEOSTIGMINE 1 MG/ML 10ML VIAL ONE (12:48)
[2020-10-27] MEDS ORDERED: LIDOCAINE HCL 2% LOCAL INJ 5 ML SDV VIAL INJ ONE (12:48)
[2020-10-27] MEDS ORDERED: SODIUM CHLORIDE 0.9% 250ML 250 ML ONE (13:58)
[2020-10-28 00:42] VITALS: BP 155/102
[2020-10-28] MEDS: KETOROLAC TROMETHAMINE 30 MG/ML VIAL IV PRN ×2 (00:54→06:10)
[2020-10-28] MEDS: VANCOMYCIN 1GM/NS 250 ML 250 ML IV SCH ×2 (01:15→12:00)
[2020-10-28 05:05] VITALS: BP 139/77
[2020-10-28] MEDS: HYDROCODONE/APAP 7.5MG-325MG 1 EA TAB PO PRN ×3 (05:24→13:33)
[2020-10-28 05:51] LABS: BASOPHILS # (AUTO) 0.1 (0.0-0.1); BASOPHILS % 0.7 % (0.0-1.0); EOSINOPHILS # (AUTO) 0.3 (0.0-0.4); EOSINOPHILS % 3.2 % (0.0-6.0); HEMATOCRIT 34.2 % (34.2-44.1); LYMPHOCYTES # (AUTO) 1.9 (1.0-3.2); LYMPHOCYTES % 20.4 % (18.0-39.1); MEAN CORPUSCULAR HEMOGLOBIN 28.5 pg (28-32); MEAN CORPUSCULAR HGB CONC 32.2 g/dL (31-35); MEAN CORPUSCULAR VOLUME 88.6 fL (81-99); MONOCYTES # (AUTO) 0.8 (0.2-0.8); MONOCYTES % 8.5 % (4.4-11.3); NEUTROPHILS # (AUTO) 6.1 (2.1-6.9); NEUTROPHILS % 66.9 % (38.7-80.0); PLATELET COUNT 308 x10e3/uL (140-360); RED BLOOD COUNT 3.86 x10e6/uL (3.6-5.1); RED CELL DISTRIBUTION WIDTH 14.7 % (11.7-14.4)
[2020-10-28 06:09] LABS: ANION GAP 11.8 mmol/L (8-16); BLOOD UREA NITROGEN 18 mg/dL (7-26); BUN/CREATININE RATIO 23 (6-25); CALCIUM 8.1 mg/dL (8.4-10.2); CARBON DIOXIDE 27 mmol/L (22-29); CHLORIDE 105 mmol/L (98-107); CREATININE, SERUM 0.78 mg/dL (0.57-1.11); EST GLOMERULAR FILTRATION RATE > 60 ML/MIN (60-); GLUCOSE 93 mg/dL (74-118); POTASSIUM 3.8 mmol/L (3.5-5.1); SODIUM 140 mmol/L (136-145)
[2020-10-28 08:18] VITALS: BP 139/77
[2020-10-28] MEDS: ASPIRIN 325 MG TAB PO SCH (08:37)
[2020-10-28] MEDS: CELECOXIB 200 MG CAP PO SCH (08:37)
[2020-10-28 08:41] VITALS: BP 168/104
[2020-10-28] MEDS ORDERED: ONDANSETRON HCL 4 MG ORAL DISINTEGRATING TAB PO PRN (10:30)
[2020-10-28 11:55] VITALS: BP 132/104
[2020-10-28] MEDS ORDERED: CEFTRIAXONE SOD 2 GM/100 ML ML IV SCH (13:15)
[2020-10-28] MEDS ORDERED: CEFTRIAXONE SOD 2 GM in SODIUM CHLORIDE 0.9% 100 ML IV SCH (14:00)
== END 2020-10-28 15:03 | disposition home health service (06) | DRG 467 ==
LOC: OR 09:47 → PACU V 12:33 → MED/SURG 15:21
PROVIDERS: ADMIT Specialist; ATTEND Specialist
PROC: 02HV33Z Insertion of Infusion Device into Superior Vena Cava, Percutaneous Approach (ICD-10-PCS; principal; 2020-10-26 10:34)
PROC: 0SPD0JZ Removal of Synthetic Substitute from Left Knee Joint, Open Approach (ICD-10-PCS; 2020-10-27)
PROC: 0SRD0J9 Replacement of Left Knee Joint with Synthetic Substitute, Cemented, Open Approach (ICD-10-PCS; 2020-10-27)
DX: T84.54XA Infection and inflammatory reaction due to internal left knee prosthesis, initial encounter (principal); K95.81 Infection due to other bariatric procedure; B99.8 Other infectious disease; E03.9 Hypothyroidism, unspecified; Z96.653 Presence of artificial knee joint, bilateral; Z98.84 Bariatric surgery status; J44.9 Chronic obstructive pulmonary disease, unspecified; T81.89XD Other complications of procedures, not elsewhere classified, subsequent encounter; E66.9 Obesity, unspecified; Z68.37 Body mass index [BMI] 37.0-37.9, adult; Z20.822 Contact with and (suspected) exposure to COVID-19; B96.5 Pseudomonas (aeruginosa) (mallei) (pseudomallei) as the cause of diseases classified elsewhere
CPT/HCPCS: 36415; 36569; 71045; 71046; 76705; 80048; 80053; 80202; 82565; 84520; 85025; 85610; 86850; 86900; 86920; 87071; 87075; 87186; 87205; 93005; 96361; 97139; 99251; C1713; J0171; J0696; J1100; J1170; J1885; J2001; J2250; J2405; J2710; J2795; J3010; J3370; J7030; J7040; J7050; U0002

== ENCOUNTER 2021-03-07 09:55 | Inpatient (IN) | payer BC ==
[2021-03-03 09:53] LABS: BASOPHILS # (AUTO) 0.1 (0.0-0.1); BASOPHILS % 0.7 % (0.0-1.0); EOSINOPHILS # (AUTO) 0.1 (0.0-0.4); HEMATOCRIT 40.6 % (34.2-44.1); HEMOGLOBIN 12.9 g/dL (12.0-16.0); LYMPHOCYTES # (AUTO) 1.6 (1.0-3.2); LYMPHOCYTES % 22.8 % (18.0-39.1); MEAN CORPUSCULAR HEMOGLOBIN 27.3 pg (28-32); MEAN CORPUSCULAR HGB CONC 31.8 g/dL (31-35); MEAN CORPUSCULAR VOLUME 85.8 fL (81-99); MONOCYTES # (AUTO) 0.6 (0.2-0.8); NEUTROPHILS # (AUTO) 4.6 (2.1-6.9); NEUTROPHILS % 66.2 % (38.7-80.0); PLATELET COUNT 375 x10e3/uL (140-360); RED BLOOD COUNT 4.73 x10e6/uL (3.6-5.1); RED CELL DISTRIBUTION WIDTH 14.6 % (11.7-14.4)
[~2021-03-07] VITALS: Ht 175.3 cm; Wt 114.3 kg
[~2021-03-07 09:55] MED LIST changes: -VANCOMYCIN HCL 500 MG ONE; +Vancomycin IV 1,000 MG ONE; +ZITHROMAX500 MG PO
[2021-03-07] MEDS ORDERED: CELECOXIB 200 MG CAP ONE (10:39)
[2021-03-07] MEDS ORDERED: DEXAMETHASONE SOD PHOS 10 MG/1 ML VIAL ONE (10:39)
[2021-03-07] MEDS ORDERED: GABAPENTIN 300 MG CAP ONE (10:39)
[2021-03-07] MEDS ORDERED: SODIUM CHLORIDE 0.9% 250ML 250 ML ONE (10:40)
[2021-03-07] MEDS ORDERED: Vancomycin IV 1 GM VIAL ONE (10:40)
[2021-03-07] MEDS ORDERED: FENTANYL CITRATE/PF 100MCG/2 ML INJ ONE ×2 (12:18→15:59)
[2021-03-07] MEDS ORDERED: MIDAZOLAM HCL 2 MG/2 ML VIAL ONE (12:18)
[2021-03-07] MEDS ORDERED: SEVOFLURANE INHAL SOLN 250 ML PEN BTL ONE (13:00)
[2021-03-07] MEDS ORDERED: POVIDONE IODINE 0.05% 0.05 % ML PO ONE (13:00)
[2021-03-07] MEDS ORDERED: LIDOCAINE HCL 2% LOCAL INJ 5 ML SDV VIAL INJ ONE (13:00)
[2021-03-07] MEDS ORDERED: PROPOFOL IV EMULSION 10 MG/ML 20 ML VIAL ONE (13:00)
[2021-03-07] MEDS ORDERED: ONDANSETRON HCL INJ 2MG/ML 2ML 2 MG/ML VIAL ONE (13:00)
[2021-03-07] MEDS ORDERED: BUPIVACAINE 0.25% 30ML SDV ONE (13:26)
[2021-03-07] MEDS ORDERED: DIPHENHYDRAMINE HCL INJ 50 MG/ML VIAL IV PRN (15:30)
[2021-03-07] MEDS ORDERED: ONDANSETRON HCL INJ 2MG/ML 2ML 2 MG/ML VIAL IV PRN (15:30)
[2021-03-07] MEDS ORDERED: HYDROCODONE/APAP 5MG-325MG TAB PO PRN (15:30)
[2021-03-07] MEDS ORDERED: DOCUSATE SODIUM 100 MG CAP PO PRN (15:30)
[2021-03-07] MEDS ORDERED: ACETAMINOPHEN 650 MG SUPP PR PRN (15:30)
[2021-03-07] MEDS ORDERED: HYDROMORPHONE 2MG/ML 2 MG/ML ML ONE (16:06)
[2021-03-07] MEDS ORDERED: MORPHINE SULFATE INJ 10 MG/ML ONE (16:09)
[2021-03-07] MEDS: KETOROLAC TROMETHAMINE 30 MG/ML VIAL IV PRN ×2 (16:20→22:30)
[2021-03-07 16:57] VITALS: BP 152/91
[2021-03-07] MEDS: CELECOXIB 100 MG CAP PO SCH (17:48)
[2021-03-07] MEDS: ASPIRIN 325 MG TAB PO SCH (17:48)
[2021-03-07] MEDS ORDERED: ACETAMINOPHEN 1000 MG/100 ML IV PRN (18:00)
[2021-03-07] MEDS: SODIUM CHLORIDE 0.9% 1000ML 1,000 ML IV SCH (18:21)
[2021-03-07 20:45] VITALS: BP 152/91
[2021-03-07] MEDS ORDERED: ZOLPIDEM TARTRATE 5 MG TAB PO PRN (21:00)
[2021-03-07] MEDS: HYDROCODONE/APAP 7.5MG-325MG 1 EA TAB PO PRN (21:00)
[2021-03-07 21:34] VITALS: BP 139/87
[2021-03-07] MEDS: Cefazolin 1 GM in SODIUM CHLORIDE 0.9% 50ML 50 ML IV SCH (22:13)
[2021-03-07 23:59] VITALS: BP 122/67
[2021-03-08 04:00] VITALS: BP 127/87
[2021-03-08] MEDS: Cefazolin 1 GM in SODIUM CHLORIDE 0.9% 50ML 50 ML IV SCH ×2 (04:35→08:52)
[2021-03-08] MEDS: KETOROLAC TROMETHAMINE 30 MG/ML VIAL IV PRN ×2 (04:35→10:50)
[2021-03-08] MEDS: SODIUM CHLORIDE 0.9% 1000ML 1,000 ML IV SCH ×2 (04:35→08:52)
[2021-03-08 04:51] LABS: HEMATOCRIT 34.9 % (34.2-44.1)
[2021-03-08] MEDS ORDERED: LEVOTHYROXINE SODIUM 100 MCG TAB PO SCH (06:00)
[2021-03-08 07:44] VITALS: BP 146/96
[2021-03-08 08:15] VITALS: BP 146/96
[2021-03-08] MEDS: ASPIRIN 325 MG TAB PO SCH (08:51)
[2021-03-08] MEDS: CELECOXIB 100 MG CAP PO SCH (08:51)
[2021-03-08] MEDS: HYDROCODONE/APAP 7.5MG-325MG 1 EA TAB PO PRN (08:52)
[2021-03-08] MEDS ORDERED: METOPROLOL TARTRATE 50 MG TAB PO SCH (09:00)
[2021-03-08 11:33] VITALS: BP 119/80
== END 2021-03-08 12:26 | disposition home or self-care (01) | DRG 468 ==
LOC: OR 09:55 → PACU V 15:22 → MED/SURG 17:07
PROVIDERS: ADMIT Specialist; ATTEND Specialist
PROC: 0SRD0J9 Replacement of Left Knee Joint with Synthetic Substitute, Cemented, Open Approach (ICD-10-PCS; 2021-03-07)
PROC: 0SPD0EZ Removal of Articulating Spacer from Left Knee Joint, Open Approach (ICD-10-PCS; principal; 2021-03-07 12:00)
DX: Z47.1 Aftercare following joint replacement surgery (principal); R00.0 Tachycardia, unspecified; D64.9 Anemia, unspecified; E03.9 Hypothyroidism, unspecified; I10 Essential (primary) hypertension
CPT/HCPCS: 36415; 85014; 85018; 85025; 86850; 86900; 86920; 87071; 87075; 87205; 93005; C1713; J0171; J0690; J1100; J1885; J2001; J2250; J2270; J2405; J2795; J3010; J3370; J7030; J7040; J7050; U0002

== ENCOUNTER → 2022-01-24 | Day surgery (SDC) | payer BC ==
[2022-01-23 09:56] LABS: BASOPHILS # (AUTO) 0.1 (0.0-0.1); BASOPHILS % 0.8 % (0.0-1.0); EOSINOPHILS # (AUTO) 0.1 (0.0-0.4); HEMATOCRIT 43.6 % (34.2-44.1); HEMOGLOBIN 13.7 g/dL (12.0-16.0); LYMPHOCYTES # (AUTO) 1.5 (1.0-3.2); LYMPHOCYTES % 19.5 % (18.0-39.1); MEAN CORPUSCULAR HEMOGLOBIN 28.6 pg (28-32); MEAN CORPUSCULAR HGB CONC 31.4 g/dL (31-35); MONOCYTES # (AUTO) 0.5 (0.2-0.8); MONOCYTES % 6.1 % (4.4-11.3); NEUTROPHILS # (AUTO) 5.7 (2.1-6.9); NEUTROPHILS % 72.3 % (38.7-80.0); PLATELET COUNT 383 x10e3/uL (140-360); RED BLOOD COUNT 4.79 x10e6/uL (3.6-5.1); RED CELL DISTRIBUTION WIDTH 14.4 % (11.7-14.4)
[~2022-01-24] MED LIST changes: +AZITHROMYCIN500 MG PO; +BUPIVACAINE HC 0.75% PF 10ML VIAL INJ ONE; +DEXAMETHASONE SOD PHOS INJ 4 MG/ML SDV ONE; +FENTANYL CITRATE/PF 100MCG/2 ML INJ ONE; +HYDROMORPHONE 1MG/1ML INJ ONE; +IOPAMIDOL 200 MG/ML 20 ML VIAL IT ONE; +KETOROLAC TROMETHAMINE 30 MG/ML VIAL ONE; +LASIX20 MG PO; +LIDOCAINE HCL 2% LOCAL INJ 5 ML SDV VIAL INJ ONE; +LISINOPRIL-HCT1 EAC1 PO; +MIDAZOLAM HCL 2 MG/2 ML VIAL ONE; +ONDANSETRON HCL INJ 2MG/ML 2ML 2 MG/ML VIAL ONE; +PHENYLEPHRINE HCL 1% 10 MG/ML VIAL ONE; +POVIDONE IODINE 0.05% 0.05 % ML PO ONE; +PROPOFOL IV EMULSION 10 MG/ML 20 ML VIAL ONE; +ROCURONIUM BROMIDE 10 MG/ML 5ML VIAL IV ONE; -ROPIVACAINE 246.25 MG, EPINEPHRINE HCL 1:1000 1ML 0.5 MG, CLONIDINE HCL 0.08 MG, KETORO... INJ ONE; +SEVOFLURANE INHAL SOLN 250 ML PEN BTL ONE; -SODIUM CHLORIDE 0.9% 500ML 500 ML ONE; -TRANEXAMIC ACID 1,000 MG/10 ML ML ONE; +TRIAMCINOLONE ACET 40 MG/ML VIAL ONE; -Vancomycin IV 1,000 MG ONE
[2022-01-24 12:11] VITALS: BP 135/80
== END | disposition home or self-care (01) ==
LOC: OR 07:25
PROVIDERS: ATTEND Specialist
DX: M87.9 Osteonecrosis, unspecified (principal); J44.9 Chronic obstructive pulmonary disease, unspecified; I10 Essential (primary) hypertension; E03.9 Hypothyroidism, unspecified; E66.01 Morbid (severe) obesity due to excess calories; Z01.810 Encounter for preprocedural cardiovascular examination; Z01.812 Encounter for preprocedural laboratory examination; Z01.818 Encounter for other preprocedural examination; Z11.8 Encounter for screening for other infectious and parasitic diseases; Z79.899 Other long term (current) drug therapy; Z68.41 Body mass index [BMI] 40.0-44.9, adult; Z96.642 Presence of left artificial hip joint
CPT/HCPCS: 20610; 27299; 36415; 71046; 77002; 85025; 87071; 87075; 87205; 93005; J0690; J1100; J1170; J1885; J2001; J2250; J2370; J2405; J2704; J3010; J3301; Q9967; U0002; 76000

== ENCOUNTER 2022-04-10 06:59 | Observation (INO) | payer BC ==
[2022-04-07 09:42] LABS: BASOPHILS # (AUTO) 0.1 (0.0-0.1); BASOPHILS % 0.9 % (0.0-1.0); EOSINOPHILS # (AUTO) 0.1 (0.0-0.4); EOSINOPHILS % 1.8 % (0.0-6.0); HEMATOCRIT 40.3 % (34.2-44.1); HEMOGLOBIN 13.2 g/dL (12.0-16.0); LYMPHOCYTES # (AUTO) 1.6 (1.0-3.2); LYMPHOCYTES % 23.9 % (18.0-39.1); MEAN CORPUSCULAR HEMOGLOBIN 29.2 pg (28-32); MEAN CORPUSCULAR HGB CONC 32.8 g/dL (31-35); MEAN CORPUSCULAR VOLUME 89.2 fL (81-99); MONOCYTES # (AUTO) 0.5 (0.2-0.8); MONOCYTES % 7.4 % (4.4-11.3); NEUTROPHILS # (AUTO) 4.4 (2.1-6.9); NEUTROPHILS % 65.7 % (38.7-80.0); PLATELET COUNT 376 x10e3/uL (140-360); RED BLOOD COUNT 4.52 x10e6/uL (3.6-5.1)
[2022-04-07 10:12] LABS: ANION GAP 16.1 mmol/L (8-16); CALCIUM 8.8 mg/dL (8.4-10.2); CREATININE, SERUM 0.81 mg/dL (0.57-1.11); POTASSIUM 4.1 mmol/L (3.5-5.1)
[~2022-04-10] VITALS: Ht 175.3 cm; Wt 124.3 kg
[~2022-04-10 06:59] MED LIST changes: -BUPIVACAINE HC 0.75% PF 10ML VIAL INJ ONE; +CELECOXIB 200 MG CAP ONE; +DEXAMETHASONE SOD PHOS 10 MG/1 ML VIAL ONE; -DEXAMETHASONE SOD PHOS INJ 4 MG/ML SDV ONE; -FENTANYL CITRATE/PF 100MCG/2 ML INJ ONE; +GABAPENTIN 300 MG CAP ONE; -HYDROMORPHONE 1MG/1ML INJ ONE; -IOPAMIDOL 200 MG/ML 20 ML VIAL IT ONE; -KETOROLAC TROMETHAMINE 30 MG/ML VIAL ONE; -LIDOCAINE HCL 2% LOCAL INJ 5 ML SDV VIAL INJ ONE; -MIDAZOLAM HCL 2 MG/2 ML VIAL ONE; -ONDANSETRON HCL INJ 2MG/ML 2ML 2 MG/ML VIAL ONE; -PHENYLEPHRINE HCL 1% 10 MG/ML VIAL ONE; -POVIDONE IODINE 0.05% 0.05 % ML PO ONE; -PROPOFOL IV EMULSION 10 MG/ML 20 ML VIAL ONE; -ROCURONIUM BROMIDE 10 MG/ML 5ML VIAL IV ONE; -SEVOFLURANE INHAL SOLN 250 ML PEN BTL ONE; -TRIAMCINOLONE ACET 40 MG/ML VIAL ONE
[2022-04-10] MEDS ORDERED: Vancomycin IV 1,000 MG ONE (07:19)
[2022-04-10] MEDS ORDERED: TRANEXAMIC ACID 20 ML ONE (07:19)
[2022-04-10] MEDS ORDERED: SODIUM CHLORIDE 0.9% 500ML 500 ML ONE (07:20)
[2022-04-10] MEDS ORDERED: ROPIVACAINE 246.25 MG, EPINEPHRINE HCL 1:1000 1ML 0.5 MG, CLONIDINE HCL 0.08 MG, KETORO... INJ ONE ×5 (07:30)
[2022-04-10] MEDS ORDERED: ACETAMINOPHEN 650 MG SUPP PR PRN (10:00)
[2022-04-10] MEDS ORDERED: ONDANSETRON HCL INJ 2MG/ML 2ML 2 MG/ML VIAL IV PRN (10:00)
[2022-04-10] MEDS ORDERED: DIPHENHYDRAMINE HCL INJ 50 MG/ML VIAL IV PRN (10:00)
[2022-04-10] MEDS ORDERED: KETOROLAC TROMETHAMINE 30 MG/ML VIAL IV PRN (10:00)
[2022-04-10] MEDS ORDERED: HYDROCODONE/APAP 5MG-325MG TAB PO PRN (10:00)
[2022-04-10] MEDS ORDERED: DOCUSATE SODIUM 100 MG CAP PO PRN (10:00)
[2022-04-10] MEDS ORDERED: ZOLPIDEM TARTRATE 5 MG TAB PO PRN (10:00)
[2022-04-10] MEDS ORDERED: HYDROCODONE/APAP 7.5MG-325MG 1 EA TAB PO PRN (10:00)
[2022-04-10] MEDS ORDERED: FENTANYL CITRATE/PF 100MCG/2 ML INJ ONE ×2 (12:33→13:17)
[2022-04-10] MEDS ORDERED: POVIDONE IODINE 0.05% 0.05 % ML PO ONE (12:50)
[2022-04-10] MEDS ORDERED: PROPOFOL IV EMULSION 10 MG/ML 20 ML VIAL ONE (12:50)
[2022-04-10] MEDS ORDERED: ACETAMINOPHEN 1000 MG/100 ML IV ONE (12:50)
[2022-04-10] MEDS ORDERED: SEVOFLURANE INHAL SOLN 250 ML PEN BTL ONE (12:50)
[2022-04-10] MEDS ORDERED: ONDANSETRON HCL INJ 2MG/ML 2ML 2 MG/ML VIAL ONE (12:50)
[2022-04-10] MEDS ORDERED: MIDAZOLAM HCL 2 MG/2 ML VIAL ONE (13:17)
[2022-04-10] MEDS ORDERED: HYDROMORPHONE 1MG/1ML INJ ONE (14:12)
[2022-04-10 14:40] VITALS: BP 135/90
[2022-04-10] MEDS ORDERED: SODIUM CHLORIDE 0.9% 1000ML 1,000 ML IV SCH (15:15)
[2022-04-10 15:19] VITALS: BP 135/90
[2022-04-10 15:24] VITALS: BP 135/90
[2022-04-10] MEDS ORDERED: CELECOXIB 200 MG CAP PO SCH (17:00)
[2022-04-10] MEDS ORDERED: ASPIRIN81 MG PO (17:19)
[2022-04-10] MEDS ORDERED: ASPIRIN 325 MG TAB PO SCH (18:45)
[2022-04-11] MEDS ORDERED: ACETAMINOPHEN 1000 MG/100 ML IV PRN (10:00)
== END 2022-04-10 19:24 | disposition home or self-care (01) ==
LOC: OR 06:59 → PACU V 09:57 → MED/SURG3 14:37
PROVIDERS: ADMIT Specialist; ATTEND Specialist
DX: M16.12 Unilateral primary osteoarthritis, left hip (principal); I10 Essential (primary) hypertension; J44.9 Chronic obstructive pulmonary disease, unspecified; G47.33 Obstructive sleep apnea (adult) (pediatric); Z90.49 Acquired absence of other specified parts of digestive tract; E03.9 Hypothyroidism, unspecified; M87.9 Osteonecrosis, unspecified; Z01.812 Encounter for preprocedural laboratory examination; Z20.822 Contact with and (suspected) exposure to COVID-19
CPT/HCPCS: 0223U; 27130; 36415; 72170; 80048; 85025; 86850; 86900; 86920; 94799; 97110; 97116; 97162; 97530; G0378; J0131; J0171; J0690; J1100; J1170; J1885; J2250; J2405; J2704; J2795; J3010; J3370; J7030; J7040; C1713; C1776